=== PATIENT | male | born 1950 | race Caucasian/White ===

== ENCOUNTER → 2020-10-23 10:41 | Outpatient (BNVA) | payer MEDICARE, MEDICAID, SELFPAY | PROVIDERS: Family Provider Internal Medicine; PCP Internal Medicine; Visit Provider Internal Medicine | DX: N40.1 Benign prostatic hyperplasia with lower urinary tract symptoms (principal); R35.1 Nocturia; E78.00 Pure hypercholesterolemia, unspecified; E11.9 Type 2 diabetes mellitus without complications; R30.0 Dysuria; G89.4 Chronic pain syndrome; I10 Essential (primary) hypertension; G47.33 Obstructive sleep apnea (adult) (pediatric) | CPT/HCPCS: 80053; 80061; 83036; 84153; 84443; 85025 ==

== ENCOUNTER → 2021-07-02 16:16 | Outpatient (BNVA) | payer MEDICARE, MEDICAID, SELFPAY | PROVIDERS: Family Provider Internal Medicine; PCP Internal Medicine; Visit Provider Internal Medicine | DX: E11.9 Type 2 diabetes mellitus without complications (principal); G89.4 Chronic pain syndrome; E78.00 Pure hypercholesterolemia, unspecified; I10 Essential (primary) hypertension | CPT/HCPCS: 80061; 83036 ==

== ENCOUNTER → 2022-03-09 17:02 | Outpatient (BNVA) | payer MEDICARE, MEDICAID, SELFPAY | PROVIDERS: Family Provider Internal Medicine; PCP Internal Medicine; Visit Provider Internal Medicine | DX: D64.9 Anemia, unspecified (principal); R53.83 Other fatigue; E11.9 Type 2 diabetes mellitus without complications | CPT/HCPCS: 80053; 82607; 83036; 83550; 84443; 85025 ==

== ENCOUNTER 2022-04-22 09:36 | Outpatient (CLI) | payer MEDICARE, MEDICAID, SELFPAY ==
--- NOTE | 2022-04-22 09:45 | USCV_ITS ---
Trenton Frandy Age: 71 Gender: M : 1950 Exam Date: 04/22/2022 09:55 Ordering Phys: Jesús Avelar MD Technologist: Soni Loomis [place] [facility] [place]: systolic murmur BP: 0 / 80 HR: 66 Rhythm: Sinus Technical Quality: Good MEASUREMENTS (Male / Female) Normal Values 2D ECHO LV Diastolic Diameter PLAX 3.6 cm 4.2 - 5.9 / 3.9 - 5.3 cm LV Systolic Diameter PLAX 1.9 cm IVS Diastolic Thickness 1.2 cm 0.6 - 1.0 / 0.6 - 0.9 cm IVS Systolic Thickness 1.5 cm LVPW Diastolic Thickness 1.7 cm 0.6 - 1.0 / 0.6 - 0.9 cm LVPW Systolic Thickness 2.1 cm LVOT Diameter 2.0 cm LV Ejection Fraction 2D Teich 69.4 % LA Diameter 3.0 cm LA Width 3.6 cm LA Height 4.8 cm RA Width 3.5 cm RA Height 4.0 cm Aorta at Sinotubular Diameter 2.4 cm IVC Diameter 3.0 cm DOPPLER AV Peak Velocity 235.3 cm/s LVOT Peak Velocity 105.0 cm/s AV Area Cont Eq vti 1.4 cm squared AV Area Cont Eq pk 1.5 cm squared MV Peak Velocity 207.0 cm/s MV Area PHT 4.4 cm squared Mitral E to A Ratio 1.0 MV E' Velocity 56.0 cm/s Mitral E to MV E' Ratio 14.7 Mitral E to LV E' Lateral Ratio 11.7 Mitral E to LV E' Septal Ratio 19.8 TR Peak Velocity 113.0 cm/s TR Peak Gradient 5.1 mmHg Right Atrial Pressure 3.0 mmHg Pulmonary Artery Systolic Pressu 8.1 mmHg RV Acceleration Time 0.1 s RV Ejection Time 0.3 s RV AcT/ET 0.3 FINDINGS Left Ventricle Left ventricle is normal in size. LV systolic function is normal with EF of 55 to 60%. No regional wall abnormalities are seen. Right Ventricle Normal in size and function Right Atrium Normal in size Left Atrium Normal in size Mitral Valve Structurally normal mitral valve. Mild mitral regurgitation.Mean gradient across mitral valve is 5.4 mmHg. This is consistent with mild mitral stenosis. Aortic Valve Aortic valve is thickened. Mild aortic regurgitation. Mild aortic stenosis with aortic valve area of 1.41 cm2 and mean gradient across aortic valve of 11 mmHg. Tricuspid Valve Mild tricuspid regurgitation. Pulmonary artery systolic pressure is normal Pulmonic Valve Not well-visualized Pericardium Normal Aorta Normal in size IVC Appears to be normal CONCLUSIONS LV systolic function is normal with EF 55 to 60%. Mild mitral regurgitation. Mild mitral stenosis. Aortic valve is thickened. Mild aortic regurgitation. Mild aortic stenosis is seen. Mild tricuspid regurgitation No comparison studies are available Alo Delaney MD (Electronically Signed) Final Date: 03 May 2022 16:20 S
== END 2022-04-22 09:37 | disposition home or self-care (01) ==
LOC: RAD 09:37
PROVIDERS: PCP Family Medicine; Visit Provider Family Medicine
DX: R01.1 Cardiac murmur, unspecified (principal); I08.3 Combined rheumatic disorders of mitral, aortic and tricuspid valves
CPT/HCPCS: 93306

== ENCOUNTER 2023-03-22 08:34 | Outpatient (CLI) | payer MEDICARE, MEDICAID, SELFPAY ==
--- NOTE | 2023-03-22 | ECG_ITS ---
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 Interpretive Statements NAME OF STUDY: LEXISCAN SESTAMIBI STRESS TEST INDICATION: Chest Pain, PROCEDURE: At the baseline, the EKG revealed normal sinus rhythm with a normal ST Ts. The baseline heart was 75 bpm with a blood pressue of 157/87 mm of Hg Lexiscan was infused over a period of 20 seconds. A total of 0.4 milligrams of Lexiscan was infused. The stress phase was continued for a total of 5 minutes. Heart rate at the end of the stress phase was 82 bpm with a blood pressure 167/87 mm of Hg. The EKG at the peak infusion revealed no significant changes. Sestamibi was injected 20 seconds after the Lexiscan infusion. Heart rate at the end of the recovery phase was 81 bpm with a blood pressure of 161/87 mm of Hg. CONCLUSION: 1. No significant EKG changes with the LexiScan infusion 2. No LexiScan induced chest pain or cardiac arrhythmia 3. Normal blood pressure and heart rate response 4. Sestamibi/sestamibi perfusion scan pending; see separate report. Electronically Signed On 03-26-2023 12:20:57 WEATHER FORECASTER by Dixie Fair M.D. [email or web address]
[2023-03-22 09:02] VITALS: BMI 27.4
--- NOTE | 2023-03-22 09:04 | NMCV_ITS ---
NM cory perf SPECT r/s* [id number] Frandy Chowdhury Age: 72 Gender: M : 1950 Exam Date: 03/22/2023 10:08 Ordering Phys: Jesús Avelar MD Technologist: YARA Dodson Exam Location: [facility] Indications: CHEST PAIN STRESS TEST Please see separate stress test report in [facility] for full findings IMAGE PROTOCOL Rest/Stress 1 Lexiscan Day Radiopharmaceutical Dose (mCi) Administration Site Administered by Rest: Tc-99m 10.9 IV YARA Bledsoe Sestamibi Stress:Tc-99m 32.2 IV YARA Bledsoe Sestamibi Rest: 03/22/2023 60 Discovery 630 Stress: 03/22/2023 30 Discovery 630 0.4mg Lexiscan. Images obtained in supine and prone position. SPECT RESULTS Technical Quality: Excellent Raw Data Analysis: Image Corrections: No attenuation or motion correction applied Summed Stress Score: 0 Summed Rest Score: 2 Summed Difference Score: 0 PERFUSION FINDINGS Fairly uniform myocardial subject with no significant perfusion abnormalities FUNCTIONAL RESULTS (calculated via Gated SPECT) Stress Image LV EF (%): 90 Stress EDV (mL):82 TID: 1.19 Stress ESV (mL):8 FUNCTIONAL FINDINGS: Segmental wall motion analysis revealing no gross wall motion abnormalities IMPRESSIONS 1. Myocardial perfusion imaging revealing uniform myocardial tracer uptake with no significant perfusion normalities 2. Normal LV ejection fraction 90% 3. LV wall motion analysis revealing no gross wall motion abnormalities. 4. Normal LV volume. Low probability for coronary ischemia, based on the above findings Dr Dixie Fair MD FACC (Electronically Signed) Final Date: 22 March 2023 16:01 S
[2023-03-22] MEDS: regadenoson 0.4 Mg/5 ml Syringe IVP (10:43)
[2023-03-22 11:02] VITALS: BP 161/87; PULSE 82
== END 2023-03-22 08:35 | disposition home or self-care (01) ==
LOC: CDL 08:38
PROVIDERS: PCP Family Medicine; Visit Provider Family Medicine
DX: R07.9 Chest pain, unspecified (principal)
CPT/HCPCS: 36415; 78452; 93017; 96374; A9500; J2785

== ENCOUNTER 2023-08-29 05:19 | Inpatient (IN) | payer MEDICARE, MEDICAID, SELFPAY ==
[2023-08-29] VITALS (12 sets, daily range): BP systolic 96–159; BP diastolic 56–91; PULSE 69–106; RESP 13–27; TEMP 36.4–37.4; O2SAT 92–100; BMI 28.7
--- NOTE | 2023-08-29 05:27 | ECG_ITS ---
[facility] Test Date: 2023-08-29 Pat Name: Frandy Chowdhury Department: Room: 112 Gender: Male Gambreler: : 1950 Requested By: Vik Ramirez Order Number: [id number] Osito MD: Dixie Fair M.D. Measurements Intervals [place] Rate: 106 P: 4 [place]: 174 QRS: 67 QRSD: 100 T: -50 QT: 326 QTc: 433 Interpretive Statements SINUS TACHYCARDIA ST DEVIATION AND MODERATE T-WAVE ABNORMALITY, CONSIDER INFERIOR ISCHEMIA [-0.1+ mV T-WAVE IN II/aVF] Compared to ECG 08/29/2023 05:21:01 Atrial flutter no longer present T-wave abnormality still present Possible ischemia still present Electronically Signed On 08-29-2023 22:43:30 CDT by Dixie Fair M.D. [email or web address]
--- NOTE | 2023-08-29 05:27 | XRR_ITS ---
PROCEDURE INFORMATION: Exam: XR Chest Exam date and time: 08/29/2023 5:15 AM Age: 72 years old Clinical indication: Chest pressure; Prior surgery; Surgery date: 6+ months; Surgery type: Coronary stents; Patient HX: C/O chest pain; Additional info: Cp TECHNIQUE: Imaging protocol: Radiologic exam of the chest. Views: 1 view. COMPARISON: CR XR chest 1V [id number] 07/06/2018 11:26 PM FINDINGS: Lungs: Mild COPD. Diffuse interstitial edema or scarring. Lung base findings mildly progressed. No consolidation. Pleural spaces: Unremarkable. No pleural effusion. No pneumothorax. Heart/Mediastinum: The heart is large. Advanced diffuse vascular calcification noted. Bones/joints: Unremarkable. XR/XR chest 1V portable [id number] IMPRESSION: Mildly increased areas of bibasilar interstitial edema, scarring or pneumonitis. No other change from 07/06/2018.
[2023-08-29 05:38] LABS: Basophils # 0.1 10^3/uL (0.0-0.1); Basophils % 1.1 %; Eosinophils # 0.3 10^3/uL (0.0-0.8); Hematocrit 39.2 % (37-53); Lymphocytes # 2.7 10^3/uL (0.8-4.8); Mean Corpuscular HGB Conc 33.9 g/dL (30-55); Mean Corpuscular Hemoglobin 30.4 pg (27-33); Mean Corpuscular Volume 89.5 fl (82-101); Mean Platelet Volume 9.1 fL (7.4-10.4); Monocytes # 0.8 10^3/uL (0.2-0.9); Monocytes % 8.7 %; Neutrophils # 5.07 10^3/uL (1.8-7.7); Neutrophils % 55.7 %; Nucleated Red Blood Cells % 0 %; Platelet Count 226 10^3/cmm (157-399); Red Blood Count 4.38 10^6/uL (3.85-5.65); Red Cell Distribution Width 13.3 % (12.1-15.1)
[2023-08-29 05:40] LABS: INR 0.98 (0.8-1.2)
[2023-08-29 05:41] LABS: Partial Thromboplastin Time 29.7 SECONDS (23.9-36.7)
[2023-08-29] MEDS: heparin 5,000 unit/mL INJ 1 mL 4000 UNIT IVP (05:45)
[2023-08-29] MEDS: ondansetron 2 mg/ML SDV 2 mL 4 MG IVP (05:46)
[2023-08-29] MEDS: morphine 4 mg/mL SDV 1 mL IVP (05:47)
[2023-08-29] MEDS: clopidogrel 300 mg Tablet 600 MG PO (05:47)
[2023-08-29 05:51] LABS: Alanine Aminotransferase 50 U/L (0-41); Albumin Level 4.5 g/dL (3.5-5.2); Alkaline Phosphatase 204 U/L (40-130); Anion Gap 21.3 (5-19); Aspartate Amino Transferase 53 U/L (0-40); Blood Urea Nitrogen 21 mg/dL (8-23); Carbon Dioxide 18 mmol/L (22-29); Chloride 99 mmol/L (98-107); Creatinine Clr Calc Pharmacy 42.2718; Globulin 2.5 g/dL (1.3-4.6); Glucose 255 mg/dL (65-115); Osmolality Calculated 288 mOsm/kg (285-295); Potassium 5.3 mmol/L (3.5-5.1); Sodium 133 mmol/L (136-145); Total Bilirubin 0.6 mg/dL (0.15-1.2)
--- NOTE | 2023-08-29 05:51 | PC.NURSE ---
Pt's arm red in appearance above IV. Unknown if arm was red before medications. Pt. states it does it from time to time. will continue to observe IV site
[2023-08-29 05:52] LABS: Troponin(5th) Baseline 704 ng/L (0-15)
[2023-08-29] MEDS: diphenhydrAMINE 50 mg/mL SDV 1mL IVP (06:00)
--- NOTE | 2023-08-29 06:01 | P.CONIM_ITS ---
Providers/Reason For Consult 2 Consulting Physician/Specialty*: Cardiovascular medicine Reason for Consult*: Chest pain, abnormal EKG, Elevated troponin Requesting Physician: Emergency room Primary Care Provider: Jesús Avelar MD History of Present Illness History of Present Illness Frandy Chowdhury is a 72 year old male who is a very poor historian. He came to the emergency room a short while ago complaining of chest pain and shortness of breath. According to the emergency room physician he was struggling to breathe and so BiPAP mask has been placed. When I arrived the BiPAP was in place and it is exceedingly difficult to take a history. He is a poor historian. The best I can get out of him is that he started having chest pain around 2:00 and has become short of breath. Beyond that there is not much in the way of history. He states that he has not had an old heart attack. He does not think he has any stents in place. There is no cardiac visit or evidence of cardiac disease in his chart. He has a history of sleep apnea, hypertension, dyslipidemia, diabetes and chronic kidney disease. His creatinine was 1.5 in March 2022. He states that he is having some chest pain but it is difficult to get an accurate history. His EKGs have revealed subtle ST elevation in leads III and aVF. These are variable however. In 2022, March he had a normal sestamibi exam. In 2021 he had normal left ventricular function by echo with mild aortic stenosis and aortic insufficiency. In the emergency room he has received a heparin bolus, Plavix, aspirin, morphine, Zofran and fentanyl. His first troponin here is 704. His creatinine is 1.6 and his transaminases are slightly high. History is so nebulous but with the troponin fairly high and the EKG with subtle abnormalities I will take him to the catheterization laboratory. Review of Systems 2 Narrative: Review of systems is not available. Medications/Allergies Home Medications Medication Instructions Recorded Confirmed Last Taken Type albuterol sulfate 90 mcg/actuation See Rx Instructions .Route 01/20/21 03/18/22 Unknown Rx aerosol inhaler (Ventolin HFA) .COMPLEX #18 grams fluticasone propionate 50 See Rx Instructions .Route 01/20/21 03/18/22 Unknown Rx mcg/actuation nasal .COMPLEX #16 grams spray,suspension omeprazole 20 mg capsule,delayed 20 mg PO BID 90 days #180 caps 06/23/21 03/18/22 Unknown Rx release tamsulosin 0.4 mg capsule (Flomax) 0.4 mg PO DAILY #90 caps 10/07/21 03/18/22 Unknown Rx glimepiride 4 mg tablet (Amaryl) 4 mg PO BID #180 tabs 10/08/21 03/18/22 Unknown Rx metformin 750 mg tablet,extended See Rx Instructions .Route 11/06/21 03/18/22 Unknown Rx release 24 hr .COMPLEX #270 tabs hydrochlorothiazide 25 mg tablet See Rx Instructions .Route 01/06/22 03/18/22 Unknown Rx .COMPLEX #30 tabs sitagliptin phosphate 100 mg See Rx Instructions .Route 01/06/22 03/18/22 Unknown Rx tablet (Januvia) .COMPLEX #30 tabs lisinopril 20 mg tablet See Rx Instructions .Route 02/02/22 03/18/22 Unknown Rx .COMPLEX #30 tabs metoprolol tartrate 50 mg tablet 50 mg PO BID #60 tabs 02/02/22 03/18/22 Unknown Rx simvastatin 40 mg tablet See Rx Instructions .Route 02/09/22 03/18/22 Unknown Rx .COMPLEX #30 tabs Electric wheelchair #1 ea 03/04/22 03/18/22 Unknown Rx celecoxib 200 mg capsule See Rx Instructions .Route 03/09/22 03/18/22 Unknown Rx .COMPLEX #60 caps hydrocodone 10 mg-acetaminophen 1 tab PO BID PRN pain 1 month #60 03/18/22 03/18/22 Unknown Rx 325 mg tablet tabs Allergies Allergy/AdvReac Type Severity Reaction Status Date / Time No Known Allergies Allergy Verified 03/18/22 13:08 PFSH Acute 2 PFSH: Medical History (Updated 08/29/23 @ 06:07 by Vik Patel DO) Myocardial infarction, inferior wall ADRIAN (obstructive sleep apnea) Essential (primary) hypertension Pure hypercholesterolemia, unspecified Chronic pain Diabetes mellitus Surgical History History of hip replacement Family History Other Cancer Diabetes Hypertension Social History Smoking and tobacco/nicotine status: never used tobacco/nicotine Alcohol intake: never Substance/Drug Use: never Household members: none Housing: Apartment Marital status: Single Current occupational status: disabled Vitals/I&O/Wt Last Vital Signs Temp 97.6 F 08/29/23 05:19 Pulse 96 08/29/23 05:45 Resp 20 H 08/29/23 05:45 BP 126/85 08/29/23 05:45 Pulse Ox 99 08/29/23 05:45 FiO2 40 08/29/23 05:45 Weight last 48 hrs Weight 178 lb Physical Exam 2 Narrative: GENERAL: In general he looks mildly short of breath. HEENT: Exam within normal limits. NECK: Supple without jugular vein distention. The carotid upstroke is normal without bruits. BACK: Exam normal. LUNGS: Clear. HEART: Regular rate and rhythm. ABDOMEN: Benign without organomegaly or tenderness. EXTREMITIES: No edema. NEUROLOGIC: Exam normal. SKIN: Unremarkable. Data 08/29/23 05:24 08/29/23 05:24 A&P Assessment and plan (1) Pure hypercholesterolemia, unspecified: (2) Essential (primary) hypertension: (3) DM type 2 (diabetes mellitus, type 2): (4) Chronic pain: (5) ADRIAN (obstructive sleep apnea): (6) Myocardial infarction, inferior wall: Plan I suspect this has been going on longer than he admits. His transaminases are already mildly elevated. His troponin is 700 but we do not know if it is increasing or decreasing. The EKG suggests an inferior injury. We will take him to the catheterization laboratory and go from there. Consult Attestations 2 Medical Necessity Statement: Hospitalization for what is probably inferior injury and possible congestive heart failure. and High Time for a total of 60 minutes, includes reviewing past or interval history, examining/interviewing patient, placing orders, counseling patient/family/other support, updating patient/family/other support, discussing plan of care with staff, communicating with other healthcare providers, documenting encounter and coordinating care Diagnoses Pure hypercholesterolemia, unspecified E78.00 Essential (primary) hypertension I10 DM type 2 (diabetes mellitus, type 2) E11.9 Chronic pain G89.29 ADRIAN (obstructive sleep apnea) G47.33 Myocardial infarction, inferior wall I21.19
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
--- NOTE | 2023-08-29 06:04 | ED_ITS ---
HPI - Chest Pain 2 General: Chief Complaint: Chest Pain Stated Complaint: CP Time Seen by Provider: 08/29/23 05:23 History of Present Illness: 72-year-old male who tells me he has a h istory of coronary disease. He presents after waking this morning with significant chest pain. He rated a 10 out of 10 originally. He was short of breath as well. He says he has been coughing for a couple of days. No fever. He called 911. He received aspirin and fentanyl en route. Pain is improved to some degree, but he still having pain. He is diaphoretic, short of breath, and nauseated. Associated symptoms: Reports dyspnea and nausea; Deny abdominal pain, fever(s), palpitations or vomiting Review of Systems 2 Const: Denies: fever(s) ENMT: Denies: throat pain Card: Reports: chest pain; Denies: palpitations Resp: Reports: dyspnea and non-productive cough GI: Reports: nausea; Denies: abdominal pain or vomiting Psych: Reports: anxiety PFS ED 2 PFSH: Medical History Myocardial infarction, inferior wall ADRIAN (obstructive sleep apnea) Essential (primary) hypertension Pure hypercholesterolemia, unspecified Chronic pain Diabetes mellitus Surgical History History of hip replacement Family History Other Cancer Diabetes Hypertension Social History Smoking and tobacco/nicotine status: never used tobacco/nicotine Alcohol intake: never Substance/Drug Use: never Household members: none Housing: Apartment Marital status: Single Current occupational status: disabled Physical Exam 2 Const: GENERAL APPEARANCE: cooperative, in distress, ill appearing and frail appearing (mildly for age) HENMT: COMMON NORMALS: normocephalic, atraumatic and Normal external nose present HEAD & SCALP: normocephalic and atraumatic NOSE: Normal external nose present Eye: COMMON NORMALS: Equal, round and reactive pupils present and EOMs intact bilaterally PUPIL: Yes Equal, round and reactive pupils present Neck/C-Spine: GENERAL: Yes trachea midline Chest: CHEST: Yes Symmetrical chest wall rise Resp: EFFORT & INSPECTION: Yes tachypneic and Yes uses accessory muscles A USCULTATION: rales Cardio: COMMON NORMALS: regular rate and regular rhythm RATE: regular rate RHYTHM: regular rhythm GI: COMMON NORMALS: non-tender Extremity: GENERAL: Yes edema Neuro: TEZ COMA SCALE: document GCS findings [place] coma scale eye opening: Spontaneous Tez coma scale verbal response: Orientated Tez coma scale motor response: Obey commands Tez coma scale total score: 15 Course 2 Vital Signs: Vital signs: Vital Signs Temperature 97.6 F 08/29/23 05:19 Pulse Rate 75 08/29/23 12:00 Respiratory Rate 13 08/29/23 12:00 Blood Pressure 96/56 08/29/23 12:00 Pulse Oximetry 93 08/29/23 12:00 Oxygen Delivery Me thod Room Air 08/29/23 12:00 Fraction of Inspir ed Oxygen 40 08/29/23 08:02 MDM - Chest Pain Medical Decision Making Patient presents with significant chest pain, diaphoresis, shortness of breath. His EKG in the field, and initially here shows mild ST elevation in lead III, with less elevation in lead aVF. Rhythm is sinus. Rate is in the 80s. Consulted cardiology on the patient's arrival. He came in to see the patient and agrees to take the patient to the lab aid directly from the ER. He has had Fentanyl and aspirin in the field. He is given Plavix 600 milligrams, heparin, and morphine here. His pain is improved. Nitroglycerin was held, because of the inferior changes on EKG and problems related to potential hypotension with those types of infarcts/ injuries and nitrates. He is also taking erectile dysfunction medication. He is placed on bipap, as he appears to have edema on X-ray, and sounds wet on exam. His initial troponin was 700. Cardiology has requested hospitalist admission after going to the laboratory technical specialist. I have contacted them and they agreed to take the patient. Lab Data 08/29/23 05:24 08/29/23 05:24 Radiology Impressions Chest X-Ray 08/29/23 05:27 IMPRESSION: Mildly increased areas of bibasilar interstitial edema, scarring or pneumonitis. No other change from 07/06/2018. Laboratory Results WBC 9.10 10^3/uL (3.29-11.43) 08/29/23 05:24 RBC 4.38 10^6/uL (3.85-5.65) 08/29/23 05:24 Hgb 13.30 g/dL (11.27-16.99) 08/29/23 05:24 Hct 39.2 % (37-53) 08/29/23 05:24 MCV 89.5 fl (82-101) 08/29/23 05:24 MCH 30.4 pg (27-33) 08/29/23 05:24 MCHC 33.9 g/dL (30-55) 08/29/23 05:24 RDW 13.3 % (12.1-15.1) 08/29/23 05:24 Plt Count 226 10^3/cmm (157-399) 08/29/23 05:24 MPV 9.1 fL (7.4-10.4) 08/29/23 05:24 Neut % (Auto) 55.7 % 08/29/23 05:24 Lymph % (Auto) 30.0 % 08/29/23 05:24 [place] % (Auto) 8.7 % 08/29/23 05:24 Eos % (Auto) 3.0 % 08/29/23 05:24 Baso % (Auto) 1.1 % 08/29/23 05:24 Neut # (Auto) 5.07 10^3/uL (1.8-7.7) 08/29/23 05:24 Lymph # (Auto) 2.7 10^3/uL (0.8-4.8) 08/29/23 05:24 [place] # (Auto) 0.8 10^3/uL (0.2-0.9) 08/29/23 05:24 Eos # (Auto) 0.3 10^3/uL (0.0-0.8) 08/29/23 05:24 Baso # (Auto) 0.1 10^3/uL (0.0-0.1) 08/29/23 05:24 Nucleated RBC % (auto) 0 % 08/29/23 05:24 Nucleated RBCs # 0.0 /100WBC 08/29/23 05:24 PT 13.20 SECONDS (12.1-14.9) 08/29/23 05:24 INR 0.98 (0.8-1.2) 08/29/23 05:24 APTT 29.7 SECONDS (23.9-36.7) 08/29/23 05:24 Sodium 133 mmol/L (136-145) L 08/29/23 05:24 Potassium 5.3 mmol/L (3.5-5.1) H 08/29/23 05:24 Chloride 99 mmol/L (98-107) 08/29/23 05:24 Carbon Dioxide 18 mmol/L (22-29) L 08/29/23 05:24 Anion Gap 21.3 (5-19) H 08/29/23 05:24 BUN 21 mg/dL (8-23) 08/29/23 05:24 Creatinine 1.6 mg/dL (0.7-1.2) H 08/29/23 05:24 GFR Calculation Not Reportable 08/29/23 05:24 Glucose 255 mg/dL (65-115) H 08/29/23 05:24 Calculated Osmolality 288 mOsm/kg (285-295) 08/29/23 05:24 Calcium 9.0 mg/dL (8.5-10.5) 08/29/23 05:24 Total Bilirubin 0.6 mg/dL (0.15-1.2) 08/29/23 05:24 AST 53 U/L (0-40) H 08/29/23 05:24 ALT 50 U/L (0-41) H 08/29/23 05:24 Alkaline Phosphatase 204 U/L (40-130) H 08/29/23 05:24 Troponin T Baseline 704 ng/L (0-15) H* 08/29/23 05:24 NT-Pro-B Natriuret Pep 3766 pg/mL (0-125) H 08/29/23 05:24 Total Protein 7.0 g/dL (6.6-8.7) 08/29/23 05:24 Albumin 4.5 g/dL (3.5-5.2) 08/29/23 05:24 Globulin 2.5 g/dL (1.3-4.6) 08/29/23 05:24 All radiology interpretation(s) finalized by discharge Critical Care Time 2 Critical Care Time: Critical Care Time: Yes Total Critical Care Time: 35 Attestation: This case had a high probability of a clinically significant, sudden, or life threatening deterioration of this patient's condition which required my full and direct attention, intervention and personal management. Time is independent of any procedures performed. Discharge Plan Discharge Patient Disposition: Admitted As Inpatient Admit Provider: Allan Snyder Clinical Impression: Myocardial infarction, inferior wall Condition: Serious Coding Level of Care Code ED Hand Thermal Cutter for Lin Marquez
[2023-08-29 06:08] LABS: NT Pro B Type Natriuretic Pept 3766 pg/mL (0-125)
--- NOTE | 2023-08-29 07:18 | USCV_ITS ---
Frandy Chowdhury Age: 72 Gender: M : 1950 Exam Date: 08/29/2023 14:39 Ordering Phys: Allan Snyder MD ([email or web address]) Technologist: Enoc Calabrese Exam Location: [facility] [place] Indication: acute IWMI BP: 96 / 56 HR: 82 Rhythm: Sinus Technical Quality: Adequate MEASUREMENTS (Male / Female) Normal Values 2D ECHO LV Diastolic Diameter PLAX 2.5 cm 4.2 - 5.9 / 3.9 - 5.3 cm IVS Diastolic Thickness 1.1 cm 0.6 - 1.0 / 0.6 - 0.9 cm IVS Systolic Thickness 2.1 cm LVPW Diastolic Thickness 1.5 cm 0.6 - 1.0 / 0.6 - 0.9 cm LVPW Systolic Thickness 1.6 cm LVOT Diameter 2.0 cm LV Ejection Fraction 2D Teich 60.9 % LV Ejection Fraction MOD 2C 69.8 % LV Ejection Fraction 2C AL 71.6 % LA Diameter 3.7 cm RA Systolic Volume 4C AL 22.6 ml RA Systolic Volume 4C MOD 23.2 ml LA Sys Volume AL 58.1 cm cubed LA Sys Volume Index AL 29.6 cm cubed/m squared Aorta at Sinotubular Diameter 2.3 cm IVC Diameter 1.9 cm M-MODE LA Ao Ratio MM 1.2 AV Cusp Separation MM 1.4 cm DOPPLER AV Peak Velocity 284.0 cm/s LVOT Peak Velocity 106.0 cm/s AV Area Cont Eq vti 1.4 cm squared AV Area Cont Eq pk 1.2 cm squared MV Peak Velocity 133.0 cm/s MV Area PHT 5.5 cm squared Mitral E to A Ratio 0.9 TV Peak Velocity 247.3 cm/s TR Peak Velocity 381.0 cm/s TR Peak Gradient 58.1 mmHg TR Mean Velocity 300.0 cm/s TR Mean Gradient 38.3 mmHg TR Velocity Time Integral 117.0 cm PV Peak Velocity 139.7 cm/s RV Ejection Time 0.3 s FINDINGS Left Ventricle Left ventricle is normal in size. LV systolic function is normal with EF of 55 to 60%. No regional wall motion abnormalities are seen. Mild left ventricular hypertrophy. Grade 1 diastolic dysfunction. Right Ventricle Normal in size and function Right Atrium Normal in size Left Atrium Normal in size Mitral Valve Structurally normal mitral valve. Mild mitral regurgitation. Aortic Valve Aortic valve is thickened. No significant stenosis or regurgitation. Mild to moderate aortic stenosis with aortic valve area 1.3 cm squared and mean gradient of 18 mmHg. Mild aortic regurgitation Tricuspid Valve Trace tricuspid regurgitation. Insufficient TR jet to evaluate RVSP. Pulmonic Valve Trace pulmonic regurgitation. Pericardium Normal Aorta Normal in size IVC Appears to be normal CONCLUSIONS LV systolic function is normal with EF of 55 to 60%. Grade 1 diastolic dysfunction. Mild mitral regurgitation. Mild to moderate aortic stenosis. Trace tricuspid regurgitation Trace pulmonic regurgitation Compared to prior echocardiogram from 2021, no significant changes are seen. Alo Delaney MD (Electronically Signed) Final Date: 31 August 2023 07:25 S
--- NOTE | 2023-08-29 07:27 | ECG_ITS ---
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 Measurements Intervals [place] Rate: 69 P: 12 MD: 187 QRS: 57 QRSD: 113 T: -45 QT: 388 QTc: 417 Interpretive Statements SINUS RHYTHM MODERATE INTRAVENTRICULAR CONDUCTION DELAY [110+ ms QRS DURATION] ST DEVIATION AND MODERATE T-WAVE ABNORMALITY, CONSIDER LATERAL ISCHEMIA [-0.1+ mV T-WAVE IN I/aVL/V5/V6] ST DEVIATION AND MODERATE T-WAVE ABNORMALITY, CONSIDER INFERIOR ISCHEMIA [-0.1+ mV T-WAVE IN II/aVF] Compared to ECG 08/29/2023 05:21:01 Intraventricular conduction delay now present Atrial flutter no longer present T-wave abnormality still present Possible ischemia still present Electronically Signed On 08-29-2023 22:51:23 CDT by Dixie Fair M.D. [id number]
[2023-08-29] MEDS: sodium chloride 0.9% 1,000 ML 75 ML IV ×2 (07:40→18:48)
--- NOTE | 2023-08-29 08:28 | P.HP_ITS ---
Providers/Chief Complaint 2 Admitting Physician: Irving Cowan MD Primary Care Provider: Jesús Avelar MD Chief Complaint: CP History of Present Illness Frandy Chowdhury is a 72 year old male with past medical history of inferior wall DC, obstructive sleep apnea, hypertension, hyperlipidemia, chronic pain, diabetes mellitus, ite-ksyjjas-rerqtabyg, non-smoker presented to the hospital today with complaint of chest pain that started last night around 1 in the morning. He says he was also short of breath but pain was unbearable therefore he called 911. He also states he had nausea and had a vomit. He says it is okay to resuscitate him if needed. He is okay with intubation and CPR. On arrival to ER 111/74, saturating 99% on 40% FiO2, respiratory rate 20, pulse 90, temperature 97.6. EKG done in the field showed ST elevation in lead III and aVF. STEMI alert was called. Warehouse Freight Handler activated and patient taken to cath. He received 1 drug-eluting stent to LAD. Patient was loaded with Plavix and started on heparin drip on arrival. Chest x-ray showed mildly increased areas of bibasilar residual edema scarring or pneumonitis. Labs initial troponin 704, WBC 9.0, hemoglobin 13.3, INR 0.98, sodium 133, potassium 5.3, creatinine 1.6. Patient seen by hospitalist after returning from Warehouse Freight Handler after cardiac angiogram and PCI. He is resting comfortably in bed and is currently on BiPAP. States he takes his CPAP at nighttime. Medications/Allergies Home Medications Medication Instructions Recorded Confirmed Last Taken Type albuterol sulfate 90 mcg/actuation See Rx Instructions .Route 01/20/21 03/18/22 Unknown Rx aerosol inhaler (Ventolin HFA) .COMPLEX #18 grams fluticasone propionate 50 See Rx Instructions .Route 01/20/21 03/18/22 Unknown Rx mcg/actuation nasal .COMPLEX #16 grams spray,suspension omeprazole 20 mg capsule,delayed 20 mg PO BID 90 days #180 caps 06/23/21 03/18/22 Unknown Rx release tamsulosin 0.4 mg capsule (Flomax) 0.4 mg PO DAILY #90 caps 10/07/21 03/18/22 Unknown Rx glimepiride 4 mg tablet (Amaryl) 4 mg PO BID #180 tabs 10/08/21 03/18/22 Unknown Rx metformin 750 mg tablet,extended See Rx Instructions .Route 11/06/21 03/18/22 Unknown Rx release 24 hr .COMPLEX #270 tabs hydrochlorothiazide 25 mg tablet See Rx Instructions .Route 01/06/22 03/18/22 Unknown Rx .COMPLEX #30 tabs sitagliptin phosphate 100 mg See Rx Instructions .Route 01/06/22 03/18/22 Unknown Rx tablet (Januvia) .COMPLEX #30 tabs lisinopril 20 mg tablet See Rx Instructions .Route 02/02/22 03/18/22 Unknown Rx .COMPLEX #30 tabs metoprolol tartrate 50 mg tablet 50 mg PO BID #60 tabs 02/02/22 03/18/22 Unknown Rx simvastatin 40 mg tablet See Rx Instructions .Route 02/09/22 03/18/22 Unknown Rx .COMPLEX #30 tabs Electric wheelchair #1 ea 03/04/22 03/18/22 Unknown Rx celecoxib 200 mg capsule See Rx Instructions .Route 03/09/22 03/18/22 Unknown Rx .COMPLEX #60 caps hydrocodone 10 mg-acetaminophen 1 tab PO BID PRN pain 1 month #60 03/18/22 03/18/22 Unknown Rx 325 mg tablet tabs Allergies Allergy/AdvReac Type Severity Reaction Status Date / Time No Known Allergies Allergy Verified 03/18/22 13:08 PFSH Acute 2 PFSH: Medical History (Updated 08/29/23 @ 06:07 by Vik Patel DO) Myocardial infarction, inferior wall ADRIAN (obstructive sleep apnea) Essential (primary) hypertension Pure hypercholesterolemia, unspecified Chronic pain Diabetes mellitus Surgical History History of hip replacement Family History Other Cancer Diabetes Hypertension Social History Smoking and tobacco/nicotine status: never used tobacco/nicotine Alcohol intake: never Substance/Drug Use: never Household members: none Housing: Apartment Marital status: Single Current occupational status: disabled Vitals/I&O/Wt Last Vital Signs Temp 97.6 F 08/29/23 05:19 Pulse 90 08/29/23 06:02 Resp 20 H 08/29/23 06:02 BP 111/74 08/29/23 06:02 Pulse Ox 99 08/29/23 06:02 FiO2 40 08/29/23 05:45 Weight last 48 hrs Weight 80.739 kg Physical Exam 2 Narrative: General: Alert oriented x3, patient seen resting comfortably in bed on BiPAP. HEENT: Normocephalic, atraumatic, EOMI, Cardio: Regular rate rhythm, normal S1-S2 Respiratory: Good bilateral air entry, no wheezes no rhonchi appreciated GI: Abdomen soft, nontender, nondistended, bowel sounds + Behavior: Appropriate and cooperative Extremities: no edema, no cyanosis Data 08/29/23 05:24 08/29/23 05:24 A&P Assessment and plan (1) Essential (primary) hypertension: (2) Myocardial infarction, inferior wall: (3) ST elevation myocardial infarction (STEMI): (4) Pure hypercholesterolemia, unspecified: (5) DM type 2 (diabetes mellitus, type 2): (6) ADRIAN (obstructive sleep apnea): (7) Chronic pain: Plan #Inferior wall STEMI #Hypertension #Hyperlipidemia #Diabetes mellitus, kcc-zljoaqc-wapoxtese #Shortness of breath, chest pain, nausea, diaphoresis secondary to above #GIBSON, baseline creatinine unknown. ? Continue aspirin, Plavix, ACS protocol, atorvastatin 80 daily ? Patient's status post PCI with TAI to LAD. ? Continue normal saline 75 cc/h ? Creatinine 1.6. Baseline unknown. Patient at risk of contrast-induced nephropathy ? Continue on IV fluids. ? Echo pending ? Check TSH, hemoglobin A1c, lipid profile ? Sliding scale insulin low-dose intensity Full code DVT prophylaxis: Heparin Patient wants us to contact his friend Mariann in case he cannot make his own medical decisions. Attestations 2 Medical Necessity Statement*: Greater than 2 minutes stay for management of STEMI Diagnoses Essential (primary) hypertension I10 Myocardial infarction, inferior wall I21.19 ST elevation myocardial infarction (STEMI) I21.3 Pure hypercholesterolemia, unspecified E78.00 DM type 2 (diabetes mellitus, type 2) E11.9 ADRIAN (obstructive sleep apnea) G47.33 Chronic pain G89.29
[2023-08-29 10:06] LABS: Partial Thromboplastin Time 28.9 SECONDS (23.9-36.7)
[2023-08-29 10:13] LABS: Troponin 5 2HR 996.8 ng/L (0-15); Troponin 5 2HR Delta 292.8 ABS# (0-10)
[2023-08-29] MEDS: aspirin 81 mg EC Tablet PO (10:14)
--- NOTE | 2023-08-29 11:27 | ECG_ITS ---
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 Measurements Intervals [place] Rate: 107 P: 0 [place]: 0 QRS: 59 QRSD: 97 T: -40 QT: 315 QTc: 421 Interpretive Statements Possible sinus TACHYCARDIA ST DEVIATION AND MODERATE T-WAVE ABNORMALITY, CONSIDER INFERIOR ISCHEMIA [-0.1+ mV T-WAVE IN II/aVF] No previous ECG available for comparison Baseline artifact Electronically Signed On 08-29-2023 22:51:16 CDT by Dixie Fair M.D. [id number]
[2023-08-29 12:22] LABS: Estmated Average Glucose 151; Hemoglobin A1C 6.9 % (4.0-6.0)
[2023-08-29 12:25] LABS: Glucose Point of Care 286 mg/dL (70-110)
[2023-08-29 12:28] LABS: Troponin 5 6HR 1390 ng/L (0-15); Troponin 5 6HR Delta 686 ng/L (0-12)
[2023-08-29 12:38] LABS: Chol HDL Ratio 2.78 mg/dL (1.0-5.00); Cholesterol 114 mg/dL (0-200); HDL Cholesterol 41 mg/dL (60-100); LDL Cholesterol Calculated 26 mg/dL (50-129); Thyroid Stimulating Hormone 2.54 uIU/mL (0.27-4.20); Triglycerides 233 mg/dL (0-150); VLDL Cholestrol Calculation 47 mg/dL (0-30)
[2023-08-29] MEDS: insulin lispro 100 unit/1 mL SUBCUT ×3 (13:51→21:13)
[2023-08-29 17:09] LABS: Glucose Point of Care 148 mg/dL (70-110)
[2023-08-29] MEDS: atorvastatin 40 mg Tablet 80 MG PO (17:56)
[2023-08-29 20:27] LABS: Glucose Point of Care 240 mg/dL (70-110)
[2023-08-29] MEDS: heparin 5,000 unit/mL INJ 1 mL 5000 UNIT SUBCUT (23:55)
[2023-08-30] VITALS (78 sets, daily range): BP systolic 105–217; BP diastolic 60–125; PULSE 74–157; RESP 13–31; TEMP 36.6–37.4; O2SAT 89–98
[2023-08-30 05:18] LABS: Basophils % 0.6 %; Eosinophils # 0.1 10^3/uL (0.0-0.8); Eosinophils % 2.2 %; Hematocrit 34.5 % (37-53); Lymphocytes % 19.3 %; Mean Corpuscular HGB Conc 32.8 g/dL (30-55); Mean Corpuscular Hemoglobin 30.3 pg (27-33); Mean Corpuscular Volume 92.5 fl (82-101); Mean Platelet Volume 9.2 fL (7.4-10.4); Monocytes # 0.5 10^3/uL (0.2-0.9); Monocytes % 9.3 %; Neutrophils # 3.47 10^3/uL (1.8-7.7); Neutrophils % 68.2 %; Nucleated Red Blood Cells % 0 %; Platelet Count 157 10^3/cmm (157-399); Red Blood Count 3.73 10^6/uL (3.85-5.65); Red Cell Distribution Width 13.3 % (12.1-15.1); White Blood Count 5.08 10^3/uL (3.29-11.43)
[2023-08-30 05:33] LABS: Anion Gap 15.6 (5-19); Blood Urea Nitrogen 22 mg/dL (8-23); Calcium 8.5 mg/dL (8.5-10.5); Carbon Dioxide 23 mmol/L (22-29); Chloride 108 mmol/L (98-107); Creatinine Clr Calc Pharmacy 39.7853; Glucose 165 mg/dL (65-115); Magnesium 1.7 mg/dL (1.7-2.3); Osmolality Calculated 301 mOsm/kg (285-295); Potassium 4.6 mmol/L (3.5-5.1); Sodium 142 mmol/L (136-145)
[2023-08-30 06:46] LABS: Glucose Point of Care 171 mg/dL (70-110)
--- NOTE | 2023-08-30 07:36 | P.PN_ITS ---
Subjective 2 Subjective: Patient is feeling better. No chest pain. Had PCI of LAD and RCA . Plan for staged revascularization of left circumflex artery in 2 weeks. Vitals/I&O/Wt Last Vital Signs Temp 97.8 F 08/30/23 04:00 Pulse 89 08/30/23 05:57 Resp 18 08/30/23 04:00 BP 152/83 08/30/23 04:00 Pulse Ox 93 08/30/23 04:00 O2 Del Method Room Air 08/30/23 04:00 O2 Flow Rate 94 08/29/23 15:04 FiO2 21 08/30/23 00:43 08/29/23 08/30/23 08/30/23 22:59 06:59 14:59 Intake Total 835 / 835 Output Total 600 / 600 775 / 1375 Balance 235 / 235 -775 / -540 Weight last 48 hrs Weight 169 lb Weight 178 lb Weight 178 lb Physical Exam 2 Narrative: GENERAL: Patient is alert, awake and oriented x3. [] NECK: No jugular vein distension. [] HEENT: No cyanosis. No icterus. No pallor. [] HEART: Regular S1 and S2. No murmur, rub or gallop. [] LUNGS: Diminished air entry CENTRAL NERVOUS SYSTEM: Grossly nonfocal. [] EXTREMITIES: Lower extremities with 1+ edema bilaterally. Data 08/31/23 03:27 08/31/23 03:27 A&P Assessment and plan (1) Pure hypercholesterolemia, unspecified: (2) Essential (primary) hypertension: (3) DM type 2 (diabetes mellitus, type 2): (4) Chronic pain: (5) ADRIAN (obstructive sleep apnea): (6) Myocardial infarction, inferior wall: Plan Patient had revascularization of RCA and LAD yesterday. Plan for staged PCI of left circumflex artery in 2 weeks. He is hemodynamically stable. Can uptitrate beta-adelia. Continue dual antiplatelet therapy. Echocardiogram is pending. Thank you for involving us with care of this patient. Will continue to follow. Please call with questions. Attestations 2 Medical Necessity Statement*: Care expected to cross 2 midnights. Coding Level of Care Code Acute Code for [facility] Fwd Diagnoses Pure hypercholesterolemia, unspecified E78.00 Essential (primary) hypertension I10 DM type 2 (diabetes mellitus, type 2) E11.9 Chronic pain G89.29 ADRIAN (obstructive sleep apnea) G47.33 Myocardial infarction, inferior wall I21.19
[2023-08-30] MEDS: sodium chloride 0.9% 1,000 ML 75 ML IV (07:40)
[2023-08-30] MEDS: clopidogrel 75 mg Tablet PO (09:01)
[2023-08-30] MEDS: pantoprazole DR 40 mg Tablet PO (09:01)
[2023-08-30] MEDS: aspirin 81 mg EC Tablet PO (09:01)
[2023-08-30] MEDS: insulin lispro 100 unit/1 mL SUBCUT ×4 (09:02→22:05)
--- NOTE | 2023-08-30 12:20 | P.PN_ITS ---
Subjective 2 Subjective: seen this morning no acute events overnight Vitals/I&O/Wt Last Vital Signs Temp 98 F 08/30/23 08:30 Pulse 113 H 08/30/23 08:40 Resp 18 08/30/23 08:40 BP 180/93 08/30/23 08:30 Pulse Ox 93 08/30/23 08:40 O2 Del Method Room Air 08/30/23 08:40 O2 Flow Rate 94 08/29/23 15:04 FiO2 21 08/30/23 00:43 08/29/23 08/30/23 08/30/23 22:59 06:59 14:59 Intake Total 835 / 835 965 / 965 Output Total 600 / 600 775 / 1375 200 / 200 Balance 235 / 235 -775 / -540 765 / 765 Weight last 48 hrs Weight 76.657 kg Weight 80.739 kg Weight 80.739 kg Physical Exam 2 Narrative: General: Alert oriented x3, patient seen resting comfortably in bed on BiPAP. HEENT: Normocephalic, atraumatic, EOMI, Cardio: Regular rate rhythm, normal S1-S2 Respiratory: Good bilateral air entry, no wheezes no rhonchi appreciated GI: Abdomen soft, nontender, nondistended, bowel sounds + Behavior: Appropriate and cooperative Extremities: no edema, no cyanosis Data 08/30/23 05:10 08/30/23 05:10 A&P Assessment and plan (1) Essential (primary) hypertension: (2) Myocardial infarction, inferior wall: (3) ST elevation myocardial infarction (STEMI): (4) Pure hypercholesterolemia, unspecified: (5) DM type 2 (diabetes mellitus, type 2): (6) ADRIAN (obstructive sleep apnea): (7) Chronic pain: Plan #Inferior wall STEMI #Hypertension #Hyperlipidemia #Diabetes mellitus, cvv-xasrxgd-dixrbiggn #Shortness of breath, chest pain, nausea, diaphoresis secondary to above #GIBSON, baseline creatinine unknown. ? Continue aspirin, Plavix, ACS protocol, atorvastatin 80 daily ? Patient's status post PCI with TAI to LAD. ? Continue normal saline 75 cc/h ? Creatinine 1.7. Baseline unknown. Patient at risk of contrast-induced nephropathy ? Continue on IV fluids. ? Echo pending ? Check TSH 2.54, hemoglobin A1c 6.9, lipid profile TG 233, Chol 114, LDL 26 ? Sliding scale insulin low-dose intensity Plan for dc in Am Full code DVT prophylaxis: Heparin Patient wants us to contact his friend Mariann in case he cannot make his own medical decisions. Attestations 2 Medical Necessity Statement*: Greater than 2 minutes stay for management of STEMI Diagnoses Essential (primary) hypertension I10 Myocardial infarction, inferior wall I21.19 ST elevation myocardial infarction (STEMI) I21.3 Pure hypercholesterolemia, unspecified E78.00 DM type 2 (diabetes mellitus, type 2) E11.9 ADRIAN (obstructive sleep apnea) G47.33 Chronic pain G89.29
[2023-08-30 12:30] LABS: Glucose Point of Care 280 mg/dL (70-110)
[2023-08-30] MEDS: heparin 5,000 unit/mL INJ 1 mL 5000 UNIT SUBCUT (14:08)
[2023-08-30 17:27] LABS: Glucose Point of Care 215 mg/dL (70-110)
[2023-08-30] MEDS: atorvastatin 40 mg Tablet 80 MG PO (18:24)
[2023-08-30] MEDS: hyDRALAzine 20 mg/mL INJ 1 mL 10 MG IVP (20:14)
[2023-08-30] MEDS: ALPRAZolam 0.5 mg Tablet 0.25 MG PO (20:23)
[2023-08-30 21:05] LABS: Glucose Point of Care 225 mg/dL (70-110)
[2023-08-30] MEDS: nitroglycerin 0.4 mg sublingual Tablet 0.400000000000000022 MG SUBLINGUAL (21:12)
[2023-08-30] MEDS: metoprolol tartrate 25 mg Tablet PO (22:02)
[2023-08-31] VITALS (40 sets, daily range): BP systolic 115–169; BP diastolic 64–104; PULSE 77–121; RESP 14–34; TEMP 36.6–37.1; O2SAT 93–96
[2023-08-31] MEDS: sodium chloride 0.9% 1,000 ML 75 ML IV (00:53)
[2023-08-31] MEDS: heparin 5,000 unit/mL INJ 1 mL 5000 UNIT SUBCUT (00:54)
[2023-08-31 04:08] LABS: Basophils # 0.1 10^3/uL (0.0-0.1); Eosinophils # 0.1 10^3/uL (0.0-0.8); Eosinophils % 2.3 %; Hematocrit 36.7 % (37-53); Lymphocytes # 1.1 10^3/uL (0.8-4.8); Lymphocytes % 17.2 %; Mean Corpuscular HGB Conc 32.7 g/dL (30-55); Mean Corpuscular Volume 91.8 fl (82-101); Mean Platelet Volume 9.1 fL (7.4-10.4); Monocytes # 0.6 10^3/uL (0.2-0.9); Monocytes % 9.7 %; Neutrophils # 4.24 10^3/uL (1.8-7.7); Neutrophils % 69.5 %; Nucleated Red Blood Cells % 0 %; Platelet Count 164 10^3/cmm (157-399); Red Cell Distribution Width 13.2 % (12.1-15.1)
[2023-08-31 04:25] LABS: Blood Urea Nitrogen 16 mg/dL (8-23); Calcium 9.1 mg/dL (8.5-10.5); Carbon Dioxide 24 mmol/L (22-29); Chloride 104 mmol/L (98-107); Glucose 150 mg/dL (65-115); Magnesium 1.5 mg/dL (1.7-2.3); Osmolality Calculated 290 mOsm/kg (285-295); Sodium 138 mmol/L (136-145)
[2023-08-31 06:27] LABS: Glucose Point of Care 164 mg/dL (70-110)
--- NOTE | 2023-08-31 07:16 | P.PN_ITS ---
Subjective 2 Subjective: Patient is doing well. No chest pain. Vitals/I&O/Wt Last Vital Signs Temp 98.7 F 08/31/23 04:00 Pulse 86 08/31/23 06:00 Resp 16 08/31/23 04:00 BP 154/97 08/31/23 04:00 Pulse Ox 93 08/31/23 04:00 O2 Del Method Room Air 08/30/23 21:22 O2 Flow Rate 94 08/29/23 15:04 FiO2 21 08/30/23 00:43 08/30/23 08/31/23 08/31/23 22:59 06:59 14:59 Intake Total 1000 / 1965 240 / 2205 Output Total 1800 / 2700 1320 / 4020 Balance -800 / -735 -1080 / -1815 Weight last 48 hrs Weight 169 lb Weight 178 lb Physical Exam 2 Narrative: GENERAL: Patient is alert, awake and oriented x3. [] NECK: No jugular vein distension. [] HEENT: No cyanosis. No icterus. No pallor. [] HEART: Regular S1 and S2. No murmur, rub or gallop. [] LUNGS: Diminished air entry CENTRAL NERVOUS SYSTEM: Grossly nonfocal. [] EXTREMITIES: Lower extremities with 1+ edema bilaterally. Data 08/31/23 03:27 08/31/23 03:27 A&P Assessment and plan (1) Pure hypercholesterolemia, unspecified: (2) Essential (primary) hypertension: (3) DM type 2 (diabetes mellitus, type 2): (4) Chronic pain: (5) ADRIAN (obstructive sleep apnea): (6) Myocardial infarction, inferior wall: Plan Patient had revascularization of RCA and LAD. Plan for staged PCI of left circumflex artery in 2 weeks. He is hemodynamically stable. Can uptitrate beta-adelia. Continue dual antiplatelet therapy. Echocardiogram showed normal LV systolic function Thank you for involving us with care of this patient. Patient is stable to be discharged from cardiac standpoint. Please call with questions. Attestations 2 Medical Necessity Statement*: Care expected to cross 2 midnights. Coding Level of Care Code Acute Code for g Fwd Diagnoses Pure hypercholesterolemia, unspecified E78.00 Essential (primary) hypertension I10 DM type 2 (diabetes mellitus, type 2) E11.9 Chronic pain G89.29 ADRIAN (obstructive sleep apnea) G47.33 Myocardial infarction, inferior wall I21.19
[2023-08-31] MEDS: clopidogrel 75 mg Tablet PO (08:31)
[2023-08-31] MEDS: pantoprazole DR 40 mg Tablet PO (08:31)
[2023-08-31] MEDS: aspirin 81 mg EC Tablet PO (08:31)
[2023-08-31] MEDS: lisinopril 20 mg Tablet PO (08:31)
[2023-08-31] MEDS: metoprolol tartrate 50 mg Tablet PO (08:31)
[2023-08-31] MEDS: insulin lispro 100 unit/1 mL SUBCUT (08:37)
--- NOTE | 2023-08-31 08:50 | PM.DCS ---
Discharge Providers Date of Admission: 08/29/23 07:41 Date of Discharge: August 31, 2023 Attending Provider at Admission: Allan Snyder MD Attending Provider at Discharge: Deidre Collier MD Primary Care Provider: Jesús Avelar MD Diagnoses at Discharge Discharge Diagnosis (1) Pure hypercholesterolemia, unspecified: Status: Acute (2) Essential (primary) hypertension: Status: Acute (3) DM type 2 (diabetes mellitus, type 2): Status: Acute (4) Chronic pain: Status: Acute (5) ADRIAN (obstructive sleep apnea): Status: Acute (6) Myocardial infarction, inferior wall: Status: Resolved Reason for Visit Reason for Visit: CP Hospital Course Hospital Course Patient admitted for ST elevation DC underwent immediate coronary angiogram from the ER. Underwent intervention with 1 stent to LAD. Will need a staged intervention in another 2 weeks to marginal branch. Patient monitored in the hospital post angiogram and did okay. Started on dual antiplatelet therapy and discharged home in stable condition with follow-up with cardiology outpatient. Patient agreeable with the above plan. He states he lives alone but has a caregiver and nurses that come to check up on him. Physical Exam Narrative: General: No acute distress. Sitting up in recliner appearing comfortable at this time. Denies chest pain HEENT: Normocephalic, atraumatic, EOMI, Cardio: Regular rate rhythm, normal S1-S2 Respiratory: Good bilateral air entry, no wheezes no rhonchi appreciated GI: Abdomen soft, nontender, nondistended, bowel sounds + Behavior: Appropriate and cooperative Extremities: no edema, no cyanosis Discharge Data Studies Completed and Pending Completed Studies During Hospitalization Category Date Time Status BROADCAST PROGRAM DIRECTOR request for service Stat Exams 08/29/23 06:03 Completed XR chest 1V portable [id number] Stat Exams 08/29/23 05:27 Completed CV. echo complete* [id number] Stat Ultrasound 08/29/23 07:18 Completed Radiology Impressions Chest X-Ray 08/29/23 05:27 IMPRESSION: Mildly increased areas of bibasilar interstitial edema, scarring or pneumonitis. No other change from 07/06/2018. Laboratory Results WBC 6.10 10^3/uL (3.29-11.43) 08/31/23 03:27 RBC 4.00 10^6/uL (3.85-5.65) 08/31/23 03:27 Hgb 12.00 g/dL (11.27-16.99) 08/31/23 03: Hct 36.7 % (37-53) L 08/31/23 03: MCV 91.8 fl (82-101) 08/31/23 03: MCH 30.0 pg (27-33) 08/31/23 03: MCHC 32.7 g/dL (30-55) 08/31/23 03: RDW 13.2 % (12.1-15.1) 08/31/23 03:27 Plt Count 164 10^3/cmm (157-399) 08/31/23 03: MPV 9.1 fL (7.4-10.4) 08/31/23 03: Neut % (Auto) 69.5 % 08/31/23 03: Lymph % (Auto) 17.2 % 08/31/23 03:27 [place] % (Auto) 9.7 % 08/31/23 03:27 Eos % (Auto) 2.3 % 08/31/23 03:27 Baso % (Auto) 1.0 % 08/31/23 03:27 Neut # (Auto) 4.24 10^3/uL (1.8-7.7) 08/31/23 03:27 Lymph # (Auto) 1.1 10^3/uL (0.8-4.8) 08/31/23 03:27 [place] # (Auto) 0.6 10^3/uL (0.2-0.9) 08/31/23 03:27 Eos # (Auto) 0.1 10^3/uL (0.0-0.8) 08/31/23 03:27 Baso # (Auto) 0.1 10^3/uL (0.0-0.1) 08/31/23 03:27 Nucleated RBC % (auto) 0 % 08/31/23 03:27 Nucleated RBCs # 0.0 /100WBC 08/31/23 03:27 PT 13.20 SECONDS (12.1-14.9) 08/29/23 05:24 INR 0.98 (0.8-1.2) 08/29/23 05:24 APTT 28.9 SECONDS (23.9-36.7) 08/29/23 09:41 Sodium 138 mmol/L (136-145) 08/31/23 03:27 Potassium 4.0 mmol/L (3.5-5.1) 08/31/23 03:27 Chloride 104 mmol/L (98-107) 08/31/23 03:27 Carbon Dioxide 24 mmol/L (22-29) 08/31/23 03:27 Anion Gap 14.0 (5-19) 08/31/23 03:27 BUN 16 mg/dL (8-23) 08/31/23 03:27 Creatinine 1.4 mg/dL (0.7-1.2) H 08/31/23 03:27 GFR Calculation Not Reportable 08/31/23 03:27 Glucose 150 mg/dL (65-115) H 08/31/23 03:27 POC Glucose 164 mg/dL (70-110) H 08/31/23 06:15 Estimat Average Glucose 151 08/29/23 11:50 Hemoglobin A1c 6.9 % (4.0-6.0) H 08/29/23 11:50 Calculated Osmolality 290 mOsm/kg (285-295) 08/31/23 03:27 Calcium 9.1 mg/dL (8.5-10.5) 08/31/23 03:27 Magnesium 1.5 mg/dL (1.7-2.3) L 08/31/23 03:27 Total Bilirubin 0.6 mg/dL (0.15-1.2) 08/29/23 05:24 AST 53 U/L (0-40) H 08/29/23 05:24 ALT 50 U/L (0-41) H 08/29/23 05:24 Alkaline Phosphatase 204 U/L (40-130) H 08/29/23 05:24 Troponin T Baseline 704 ng/L (0-15) H* 08/29/23 05:24 Troponin T 120 Minute 996.8 ng/L (0-15) H 08/29/23 09:41 Delta Troponin T 292.8 ABS# (0-10) H* 08/29/23 09:41 Troponin T Hi Sens 6Hr 1390 ng/L (0-15) H 08/29/23 11:50 Troponin T Hi Sens 6Hr Delta 686 ng/L (0-12) H* 08/29/23 11:50 NT-Pro-B Natriuret Pep 3766 pg/mL (0-125) H 08/29/23 05:24 Total Protein 7.0 g/dL (6.6-8.7) 08/29/23 05:24 Albumin 4.5 g/dL (3.5-5.2) 08/29/23 05:24 Globulin 2.5 g/dL (1.3-4.6) 08/29/23 05:24 Triglycerides 233 mg/dL (0-150) H 08/29/23 11:50 Cholesterol 114 mg/dL (0-200) 08/29/23 11:50 LDL Cholesterol, Calc 26 mg/dL (50-129) L 08/29/23 11:50 Total VLDL Cholesterol 47 mg/dL (0-30) H 08/29/23 11:50 HDL Cholesterol 41 mg/dL (60-100) L 08/29/23 11:50 Cholesterol/HDL Ratio 2.78 mg/dL (1.0-5.00) 08/29/23 11:50 TSH 2.54 uIU/mL (0.27-4.20) 08/29/23 11:50 Vitals Last Vital Signs Temp 98.4 F 08/31/23 08:00 Pulse 104 H 08/31/23 08:16 Resp 20 H 08/31/23 08:16 BP 169/104 08/31/23 08:00 Pulse Ox 94 08/31/23 08:16 O2 Del Method Room Air 08/31/23 08:16 O2 Flow Rate 94 08/29/23 15:04 FiO2 21 08/30/23 00:43 Discharge Plan Discharge Patient Disposition: Home Condition: Stable Prescriptions: New atorvastatin 40 mg Tablet 80 mg PO QPM Qty: 60 0RF clopidogrel 75 mg Tablet 75 mg PO DAILY Qty: 30 0RF aspirin 81 mg Tablet,Delayed Release (Dr/Ec) 81 mg PO DAILY Qty: 30 0RF Continued hydrocodone-acetaminophen 10-325 mg tablet 1 tab PO BID PRN (Reason: pain) 30 Days Qty: 60 0RF albuterol sulfate [Ventolin HFA] 90 mcg/actuation HFA aerosol inhaler See Rx Instructions .ROUTE .COMPLEX Qty: 18 3RF Dose Instruction: INHALE 2 PUFFS BY MOUTH FOUR TIMES A DAY NEEDED FOR FOR SHORTNESS OF BREATH OR WHEEZING Rx Instructions: INHALE 2 PUFFS BY MOUTH FOUR TIMES A DAY NEEDED FOR FOR SHORTNESS OF BREATH OR WHEEZING fluticasone propionate 50 mcg/actuation spray,suspension See Rx Instructions .ROUTE .COMPLEX Qty: 16 3RF Dose Instruction: PLACE 1 SPRAY IN EACH NOSTRIL DAILY Rx Instructions: PLACE 1 SPRAY IN EACH NOSTRIL DAILY omeprazole 20 mg capsule,delayed release(DR/EC) 20 mg PO BID 90 Days Qty: 180 3RF tamsulosin [Flomax] 0.4 mg capsule 0.4 mg PO DAILY Qty: 90 3RF metformin 750 mg tablet extended release 24 hr See Rx Instructions .ROUTE .COMPLEX Qty: 270 3RF Dose Instruction: TAKE THREE TABLETS BY MOUTH EVERY DAY AFTER LARGEST MEAL Rx Instructions: TAKE THREE TABLETS BY MOUTH EVERY DAY AFTER LARGEST MEAL hydrochlorothiazide 25 mg tablet See Rx Instructions .ROUTE .COMPLEX Qty: 30 5RF Dose Instruction: TAKE 1 TABLET BY MOUTH DAILY Rx Instructions: TAKE 1 TABLET BY MOUTH DAILY Januvia 100 mg tablet See Rx Instructions .ROUTE .COMPLEX Qty: 30 5RF Dose Instruction: TAKE 1 TABLET BY MOUTH DAILY Rx Instructions: TAKE 1 TABLET BY MOUTH DAILY metoprolol tartrate 50 mg tablet 50 mg PO BID Qty: 60 5RF lisinopril 20 mg tablet See Rx Instructions .ROUTE .COMPLEX Qty: 30 5RF Dose Instruction: TAKE ONE TABLET BY MOUTH EVERY DAY Rx Instructions: TAKE ONE TABLET BY MOUTH EVERY DAY (DME) Electric wheelchair See Rx Instructions .Route .MEDSUPPLY Qty: 1 0RF Rx Instructions: As directed celecoxib 200 mg capsule See Rx Instructions .ROUTE .COMPLEX Qty: 60 3RF Dose Instruction: TAKE 1 CAPSULE BY MOUTH TWO TIMES A DAY Rx Instructions: TAKE 1 CAPSULE BY MOUTH TWO TIMES A DAY glimepiride 4 mg tablet 4 mg PO BID Discontinued simvastatin 40 mg tablet See Rx Instructions .ROUTE .COMPLEX Qty: 30 5RF Dose Instruction: TAKE 1 TABLET BY MOUTH DAILY Rx Instructions: TAKE 1 TABLET BY MOUTH DAILY Discharge Orders: Discharge Order (Routine); Ordered 08/31/23 Ordered By: Deidre Collier Referrals: Jesús Avelar MD [Primary Care Provider] - 09/06/23 2:00 pm Alo Delaney M.D [Physician] - 3 weeks (During your appointment with Le Gasca you will be scheduled for appointment with Dr. Delaney. Thank you! ) Le Gasca, EULOGIO [Nurse Practitioner] - 09/13/23 3:00 pm Discharge Diet: Cardiac and Diabetic Discharge Activity: Limit activity as instructed Patient Instructions: Coronary Angioplasty (DC), Hypertension (DC), Opioid Safety, Post Angiogram Home Care Instructions Discharge Attestations Time Spent in Discharge Care*: greater than 30 min Quality Metrics Clinical Quality Measures [ No reported AMI, CVA or VTE this stay] Coding Level of Care Code Acute Code for Chg Fwd Diagnoses Pure hypercholesterolemia, unspecified E78.00 Essential (primary) hypertension I10 DM type 2 (diabetes mellitus, type 2) E11.9 Chronic pain G89.29 ADRIAN (obstructive sleep apnea) G47.33 Myocardial infarction, inferior wall I21.19
[2023-08-31 11:39] LABS: Glucose Point of Care 206 mg/dL (70-110)
--- NOTE | 2023-08-31 13:27 | PC.NURSE ---
Discharge Note Patient discharged to [home] via [w/c to medicaid transport van] accompanied by [the RN]. Discharge instructions reviewed with patient and/or jewelry sales representative. Mobile pharmacy medications and/or prescriptions provided. Belongings/home medications returned.
--- NOTE | 2023-09-01 12:24 | PC.NURSE ---
Quality Review During quality review of case we were unable to determine the exact arrival of Dr. Snyder at bedside. Video review was performed and reviewed by this nurse and Yamilex Harkins, mlt and it was visualized that Dr. Snyder arrived at 05:47.
== END 2023-08-31 12:00 | disposition home or self-care (01) | DRG 322 ==
LOC: ER 06:07 → CSU 07:40
PROVIDERS: Admitting Provider Internal Medicine Cardiovascular Disease; Emergency Provider Emergency Medicine; PCP Family Medicine; Visit Provider Internal Medicine
PROC: 027135Z Dilation of Coronary Artery, Two Arteries with Two Drug-eluting Intraluminal Devices, Percutaneous Approach (ICD-10-PCS; principal; 2023-08-29 05:45)
PROC: 027135Z Dilation of Coronary Artery, Two Arteries with Two Drug-eluting Intraluminal Devices, Percutaneous Approach (ICD-10-PCS; 2023-08-29 05:45)
DX: I21.19 ST elevation (STEMI) myocardial infarction involving other coronary artery of inferior wall (principal); N17.9 Acute kidney failure, unspecified; G47.33 Obstructive sleep apnea (adult) (pediatric); E11.22 Type 2 diabetes mellitus with diabetic chronic kidney disease; I12.9 Hypertensive chronic kidney disease with stage 1 through stage 4 chronic kidney disease, or unspecified chronic kidney disease; N18.9 Chronic kidney disease, unspecified; E78.5 Hyperlipidemia, unspecified; I35.0 Nonrheumatic aortic (valve) stenosis; E78.00 Pure hypercholesterolemia, unspecified; G89.29 Other chronic pain; I25.10 Atherosclerotic heart disease of native coronary artery without angina pectoris; Z79.84 Long term (current) use of oral hypoglycemic drugs
CPT/HCPCS: 36415; 36416; 71045; 80048; 80053; 80061; 82962; 83036; 83735; 83880; 84443; 84484; 85025; 85610; 85730; 93005; 93306; 93454; 94660; 94664; 96372; 96374; 96375; 96376; 99152; 99153; 99285; C1725; C1769; C1874; C1887; C1894; C9600; J0360; J1200; J1644; J1815; J1940; J2250; J2270; J2405; J3010; J3490; J7030; Q9967

== ENCOUNTER → 2023-09-13 14:49 | Outpatient (BNVA) | payer MEDICARE, MEDICAID, SELFPAY | PROVIDERS: PCP Family Medicine; Visit Provider Nurse Practitioner Family | DX: I25.10 Atherosclerotic heart disease of native coronary artery without angina pectoris (principal); I10 Essential (primary) hypertension; I25.2 Old myocardial infarction | CPT/HCPCS: 36415; 80048; 99214 ==

== ENCOUNTER 2023-09-29 08:52 | Observation (INO) | payer MEDICARE, MEDICAID, SELFPAY ==
[2023-09-29] VITALS (23 sets, daily range): BP systolic 96–181; BP diastolic 62–104; PULSE 57–84; RESP 8–20; TEMP 36.6–37; O2SAT 95–98; BMI 26.9
--- NOTE | 2023-09-29 06:00 | XACV_ITS ---
Ht: 168 cm Wt: 76 kg BSA: 1.89 m2 Gender: Male : 1950 Any Known Allergies: No known allergies Exam Priority: Routine Indication(s): - Chest pain Procedure(s): Procedure Description: PCI procedure Procedure Description: Drug Eluting Coronary Stent Procedure Description: Miscellaneous Procedure Description: ACT Procedure Description: Coronary Angiography Diagnostic Cath Status: Elective Diagnostic Findings * INDICATION: Staged PCI of OM 2. * Patent prior stent in the LAD. Severe 80% large sized OM 2 stenosis. * RCA is not injected as it is a staged PCI. S/p successful revascularization of OM 2 with 1 stent.. * Second Obtuse Marginal Branch Segment: significant 80% stenosis, MELINA: 3 flow. * Coronary angiography shows right dominance. PCI Status: Elective PCI Indication: Staged PCI Interventional Findings * Procedure detail: We engaged left main artery with XB 3.5 guide catheter. IV heparin was administered to maintain anticoagulation. 0.014 run-through guidewire was used to cross stenosis. We predilated stenosis with 2.5 x 20 mm semicompliant balloon. This was followed with placement of 2.25 x 26 mm resolute [place] drug-eluting stent. At this time final angiogram was performed that showed excellent stent expansion, no residual stenosis and MELINA-3 flow. Guidewire and guide catheter were removed. Patient left the Colorist Dyer in a stable condition.. * Second Obtuse Marginal Branch Segment: 80% stenosis treated with a AB TREK 2.50X20 RX BALLOON, and JOSHUA Hernandez CHELSEA 2.25X26 TAI. 0% residual stenosis, MELINA: 3 flow. Conclusions 1. Patent prior stent in the LAD. Severe 80% large sized OM 2 stenosis. 2. RCA is not injected as it is a staged PCI. S/p successful revascularization of OM 2 with 1 stent.. 3. Second Obtuse Marginal Branch Segment was treated with a Balloon, and Drug Eluting Stent. Recommendations * Continue dual antiplatelet therapy with aspirin and Plavix for at least 1 year. * High intensity statin therapy. * Outpatient cardiology follow-up in 4 weeks. Interventional RX Recommendation: PCI w/o planned CABG Diagnostic RX Recommendation: PCI w/o planned CABG Anticoagulation: Heparin Pressures Phase:Rest AO : / ( 0 ) @ 8:19:00 AM 102 / 57 ( 81 ) @ 8:27:00 AM / ( -12 ) @ 8:47:00 AM Clinical Evaluation EBL: 5mL-10mL Procedural Details Procedure Consent Obtained. Current Diagnosis : Chest Pain. Pre-Procedure Time Out. Identified patient by full name and date of as verbalized by the patient/guarantor. Does the consent match the physician's order: Yes. Accurate & Complete Informed Consent: Yes. Inpatient/Outpatient History & Physical on Chart: Yes. If H&P is completed, is and addenduem needed: No; If yes, is the addendum complete: N/A. Visualize and Verify Site with Patient/Guarantor: N/A. Relevant Radiology Images available: N/A. The risks, benefits, and alternatives of sedation and/or procedure were discussed by physician. The patient agrees to continue. Admit Source: Out Patient. Procedure started. [facility] Clinical Fraility Score: 4: Vulnerable. Colorist Dyer Indications: Staged intervention of the circumflex. Chest Pain Symptom Assessment: Typical Angina Symptoms. Cardiovascular Instability: No; stable. Correct patient, site and procedure confirmed by cath team. Current diagnosis: Chest Pain. PERRLA. Strong, equal hand cut and cover line worker bilaterally. Lungs clear x 5 lobes. IV Site on Arrival: 20 gauge in the left forearm. IV Fluids: 0.9% NaCl at KVO. 0 mL infused prior to manager labor delivery. Pre Procedural Pulses: bilateral dorsalis pedis was 2+. Pre Procedural Pulses: bilateral posterior tibial was 2+. Pre Procedural Pulses: bilateral radial was 2+. Oxygen started at 3liters/min via nasal canula. bilateral groins was prepped with chloroprep then draped in the usual sterile fashion. Baseline sample Acquired. HR: 68 BPM. Physician notified. Patient's family unavailable. Physician arrived. Physician scrubbed in. Immediate Pre-Procedure Time Out. Correct Patient: Yes; Correct Procedure: Yes; Correct Site: Yes; Correct Patient Position: Yes; Correct Supplies: Yes; Dried Flammable Prep: Yes; Blood Products Available: N/A;. Lidocaine 1% infiltrated to the right groin. Arterial access obtained with micropuncture set. 6 vincentian XB 3.5 guide catheter was inserted over the wire. Guide seated in the LCS. Runthrough guidewire was advanced through the guide catheter to lesion in the OM. Guidewire advanced across lesion. Inflation number : 1 A AB TREK 2.50X20 RX BALLOON was prepped and advanced across the 2nd Ob Magalys , then inflated to 8 TISHA for 0:14 seconds. Inflation number: 2 The AB TREK 2.50X20 RX BALLOON was reinflated across the 2nd Ob Magalys, to 10 TISHA for 0:25 seconds. Balloon out over the wire. Results checked. Inflation Number : 3 A JOSHUA R CHELSEA 2.25X26 TAI -Lot Number# [id number] was prepped and advanced across the 2nd Ob Magalys. The stent was deployed at 14 TISHA for 0:20 seconds. EXP 01-11-24. Stent balloon out over wire. Results checked. Runthrough wire out. Results checked. Guide catheter out over the wire. Physician review of films. ACT drawn. Results 256 seconds. Therapeutic limits - pre-heparin administration 90-150 seconds and monitoring heparin during a vascular procedure >250 seconds. A Right femoral angiogram was performed to determine safe placement of closure device. A Angio-Seal VIP ([place]) was successful obtaining hemostatsis at the Right Femoral artery insertion site. Angioseal placed without complications. No signs or symptoms of hematoma noted. Sterile dressing applied per usual sterile fashion. LOT [id number] EXP 05/09/2024. Post Procedure: Pulses reassessed and unchanged. PERRLA. Strong, equal hand cut and cover line worker bilaterally. No VTE prophylaxis required. Medication's Wasted: Nitro = 49.8 mg. Medication waste: Versed- 1 mg, Fentanyl- 75 mcg. Total IV fluids: 50 mL. Fluoro: 7:08. Contrast type used: Visipaque 320 mgI/mL, 100 mL bottle. Post-op diagnosis: Severe OM2 Stenosis; Status Post TAI PCI. Complications: None. Medication's Wasted: Heparin = 3000 units. Estimated blood loss: 5mL-10mL. Responsiveness - Normal response to verbal stimuli; alert and oriented, PERRLA. Airway - Unaffected, no intervention required; spontaneous ventilation. Circulation: W/N/L, pulses unchanged. Nausea/Vomiting: No. Procedure completed. Patient transferred by bed to 1st floor. Vital chart was stopped. Access Site Site: Right Femoral artery Sheath Size: 6 Fr Hemostasis Method: Angio-Seal VIP ([place]) Hemostasis Success: Successful Procedure Medications Start: 7:21 AM Stop: 7:21 AM Medication: Versed 1 mg and Fentanyl 25 mcg Amount: 1 Route: I.V. Start: 7:25 AM Stop: 7:25 AM Medication: Heparin Amount: 7000 units Route: I.V. Start: 7:42 AM Stop: 7:42 AM Medication: Nitrogylcerin Amount: 200 mcg Route: I.C. Start: 7:46 AM Stop: 7:46 AM Medication: Plavix Amount: 300 mg Route: P.O. Start: 7:50 AM Stop: 7:50 AM Medication: Heparin Amount: 1000 units Route: I.V. I, the attending physician, have reviewed and verified all procedure medications. Yes, all medications given per verbal order History/Risk Factors Hypertension: Yes Dyslipidemia: Yes Peripheral Arterial Disease (PAD): No Myocardial Infarction (NE): Yes Obesity: No Renal Disease: No Tobacco Use: Never Prior Interventions PCI: Yes CABG: No Valve Surgery: No Date of PCI: 08/29/2023 Report Signatures Finalized by Alo Delaney MD on 10/03/2023 10:31 PM
[2023-09-29] MEDS: diphenhydrAMINE 50 mg Capsule PO (06:15)
[2023-09-29 06:28] LABS: Basophils % 0.8 %; Eosinophils # 0.2 10^3/uL (0.0-0.8); Eosinophils % 3.5 %; Hematocrit 39.4 % (37-53); Lymphocytes # 1.3 10^3/uL (0.8-4.8); Lymphocytes % 27.5 %; Mean Corpuscular HGB Conc 32.2 g/dL (30-55); Mean Corpuscular Hemoglobin 29.4 pg (27-33); Mean Corpuscular Volume 91.2 fl (82-101); Mean Platelet Volume 9.2 fL (7.4-10.4); Monocytes # 0.4 10^3/uL (0.2-0.9); Monocytes % 8.3 %; Neutrophils # 2.88 10^3/uL (1.8-7.7); Neutrophils % 59.7 %; Nucleated Red Blood Cells % 0 %; Platelet Count 135 10^3/cmm (157-399); Red Blood Count 4.32 10^6/uL (3.85-5.65); Red Cell Distribution Width 12.8 % (12.1-15.1); White Blood Count 4.83 10^3/uL (3.29-11.43)
--- NOTE | 2023-09-29 06:43 | PC.NURSE ---
Home medications When asking patient about home medications last taken, patient was able to report he took his aspirin 81mg this am. When asked about other medications last taken he reported he took what was in his pill organizer. Unable to tell nurse specific meds, reports his home health nurse puts the medications in there and he takes them. No pill bottles or list brought in with patient. Educated patient on importance of med list.
[2023-09-29 06:48] LABS: Anion Gap 15.2 (5-19); Blood Urea Nitrogen 24 mg/dL (8-23); Calcium 9.3 mg/dL (8.5-10.5); Carbon Dioxide 26 mmol/L (22-29); Chloride 100 mmol/L (98-107); Creatinine Clr Calc Pharmacy 41.0766; Glucose 154 mg/dL (65-115); Osmolality Calculated 291 mOsm/kg (285-295); Potassium 4.2 mmol/L (3.5-5.1); Sodium 137 mmol/L (136-145)
--- NOTE | 2023-09-29 06:58 | W.PM.OPSUD ---
Surgery/Procedure H&P Update DATE OF PROCEDURE: September 29, 2023 DATE H&P PERFORMED: 09/13/23 H&P UPDATE INFORMATION: I have reviewed H&P completed within last 30 days, I have examined patient prior to procedure and No changes to prior documentation PREOP DIAGNOSIS: Staged PCI of left circumflex artery/ OM 2. PRIMARY INDICATION FOR PROCEDURE: Staged PCI of left circumflex artery/ OM 2. PLANNED PROCEDURE: Operation Date: 09/29/23 07:00 Proposed Procedures Staged PCI of left cirucmflex artery-Alo Delaney M.D PATIENT REASSESSED PRIOR TO SEDATION, WITH NO CHANGE NOTED: Yes PHYSICAL EXAM: alert, oriented x 3, clear to auscultation bilaterally and regular rate & rhythm AIRWAY EVAL/ANESTHESIA PLAN: normal airway, ASA III, Local Anesthesia, Risks, benefits & alternatives of sedation and/or procedure discussed and Patient agrees to continue as planned
[2023-09-29] MEDS: sodium chloride 0.9% 1,000 ML 100 ML IV ×2 (12:35→20:39)
[2023-09-29 16:41] LABS: Glucose Point of Care 143 mg/dL (70-110)
[2023-09-29] MEDS: atorvastatin 40 mg Tablet 80 MG PO (18:48)
[2023-09-29] MEDS: metoprolol tartrate 50 mg Tablet PO (18:48)
[2023-09-29] MEDS: pantoprazole DR 40 mg Tablet PO (18:48)
[2023-09-29 20:25] LABS: Glucose Point of Care 290 mg/dL (70-110)
[2023-09-29] MEDS: insulin lispro 100 unit/1 mL SUBCUT (20:37)
[2023-09-30 04:29] LABS: Basophils % 0.7 %; Eosinophils # 0.1 10^3/uL (0.0-0.8); Eosinophils % 2.9 %; Hematocrit 38.6 % (37-53); Lymphocytes # 0.8 10^3/uL (0.8-4.8); Lymphocytes % 17.2 %; Mean Corpuscular HGB Conc 32.6 g/dL (30-55); Mean Corpuscular Hemoglobin 29.7 pg (27-33); Mean Platelet Volume 9.3 fL (7.4-10.4); Monocytes # 0.4 10^3/uL (0.2-0.9); Monocytes % 9.5 %; Neutrophils # 3.07 10^3/uL (1.8-7.7); Neutrophils % 69.5 %; Nucleated Red Blood Cells % 0 %; Platelet Count 129 10^3/cmm (157-399); Red Blood Count 4.24 10^6/uL (3.85-5.65); Red Cell Distribution Width 12.7 % (12.1-15.1); White Blood Count 4.42 10^3/uL (3.29-11.43)
[2023-09-30 04:46] LABS: Anion Gap 15.5 (5-19); Blood Urea Nitrogen 23 mg/dL (8-23); Calcium 9.3 mg/dL (8.5-10.5); Carbon Dioxide 25 mmol/L (22-29); Chloride 105 mmol/L (98-107); Glucose 136 mg/dL (65-115); Osmolality Calculated 298 mOsm/kg (285-295); Potassium 4.5 mmol/L (3.5-5.1); Sodium 141 mmol/L (136-145)
[2023-09-30 04:50] LABS: Creatinine Clr Calc Pharmacy 38.6603
[2023-09-30 06:00] VITALS: PULSE 67
[2023-09-30 06:28] LABS: Glucose Point of Care 146 mg/dL (70-110)
[2023-09-30 07:28] VITALS: PULSE 71; RESP 16; O2SAT 97
[2023-09-30 07:46] VITALS: BP 162/87; PULSE 67; RESP 20; TEMP 36.7; O2SAT 98
--- NOTE | 2023-09-30 08:35 | P.DS_ITS ---
Discharge Providers Date of Admission: 09/29/23 08:52 Date of Discharge: September 30, 2023 Attending Provider at Admission: Alo Delaney M.D Attending Provider at Discharge: Alo Delaney M.D Primary Care Provider: Jesús Avelar MD Reason for Visit Reason for Visit: I25.10 Brief History: 72-year-old man with past medical histor y of hypertension who had recent acute MA and underwent successful revascularization of RCA and LAD is here for staged PCI of OM 2. Hospital Course Hospital Course Patient underwent successful revascularization of OM 2 from femoral artery access. 1 stent was placed. Patient was observed overnight and stayed stable. Was discharged home on dual antiplatelet therapy in stable condition. Physical Exam Narrative: GENERAL: Patient is alert, awake and oriented x3. [] NECK: No jugular vein distension. [] HEENT: No cyanosis. No icterus. No pallor. [] HEART: Regular S1 and S2. No murmur, rub or gallop. [] LUNGS: Diminished air entry CENTRAL NERVOUS SYSTEM: Grossly nonfocal. [] EXTREMITIES: Lower extremities with 1+ edema bilaterally. Discharge Data Studies Completed and Pending Pending at discharge Category Date Time Status FACULTY PHYSICIAN request for service Routine Exams 09/29/23 06:00 Taken Laboratory Results WBC 4.42 10^3/uL (3.29-11.43) 09/30/23 04:08 RBC 4.24 10^6/uL (3.85-5.65) 09/30/23 04:08 Hgb 12.60 g/dL (11.27-16.99) 09/30/23 04:08 Hct 38.6 % (37-53) 09/30/23 04:08 MCV 91.0 fl (82-101) 09/30/23 04:08 MCH 29.7 pg (27-33) 09/30/23 04:08 MCHC 32.6 g/dL (30-55) 09/30/23 04:08 RDW 12.7 % (12.1-15.1) 09/30/23 04:08 Plt Count 129 10^3/cmm (157-399) L 09/30/23 04:08 MPV 9.3 fL (7.4-10.4) 09/30/23 04:08 Neut % (Auto) 69.5 % 09/30/23 04:08 Lymph % (Auto) 17.2 % 09/30/23 04:08 [place] % (Auto) 9.5 % 09/30/23 04:08 Eos % (Auto) 2.9 % 09/30/23 04:08 Baso % (Auto) 0.7 % 09/30/23 04:08 Neut # (Auto) 3.07 10^3/uL (1.8-7.7) 09/30/23 04:08 Lymph # (Auto) 0.8 10^3/uL (0.8-4.8) 09/30/23 04:08 [place] # (Auto) 0.4 10^3/uL (0.2-0.9) 09/30/23 04:08 Eos # (Auto) 0.1 10^3/uL (0.0-0.8) 09/30/23 04:08 Baso # (Auto) 0.0 10^3/uL (0.0-0.1) 09/30/23 04:08 Nucleated RBC % (auto) 0 % 09/30/23 04:08 Nucleated RBCs # 0.0 /100WBC 09/30/23 04:08 Sodium 141 mmol/L (136-145) 09/30/23 04:08 Potassium 4.5 mmol/L (3.5-5.1) 09/30/23 04:08 Chloride 105 mmol/L (98-107) 09/30/23 04:08 Carbon Dioxide 25 mmol/L (22-29) 09/30/23 04:08 Anion Gap 15.5 (5-19) 09/30/23 04:08 BUN 23 mg/dL (8-23) 09/30/23 04:08 Creatinine 1.7 mg/dL (0.7-1.2) H 09/30/23 04:08 GFR Calculation Not Reportable 09/30/23 04:08 Glucose 136 mg/dL (65-115) H 09/30/23 04:08 POC Glucose 146 mg/dL (70-110) H 09/30/23 06:14 Calculated Osmolality 298 mOsm/kg (285-295) H 09/30/23 04:08 Calcium 9.3 mg/dL (8.5-10.5) 09/30/23 04:08 Vitals Last Vital Signs Temp 98.0 F 09/30/23 07:46 Pulse 67 09/30/23 07:46 Resp 20 H 09/30/23 07:46 BP 162/87 09/30/23 07:46 Pulse Ox 98 09/30/23 07:46 O2 Del Method Room Air 09/30/23 07:46 Discharge Plan Discharge Patient Disposition: Home Condition: Stable Prescriptions: Continued hydrocodone-acetaminophen 10-325 mg tablet 1 tab PO BID PRN (Reason: pain) 30 Days Qty: 60 0RF albuterol sulfate [Ventolin HFA] 90 mcg/actuation HFA aerosol inhaler See Rx Instructions .ROUTE .COMPLEX Qty: 18 3RF Dose Instruction: INHALE 2 PUFFS BY MOUTH FOUR TIMES A DAY NEEDED FOR FOR SHORTNESS OF BREATH OR WHEEZING Rx Instructions: INHALE 2 PUFFS BY MOUTH FOUR TIMES A DAY NEEDED FOR FOR SHORTNESS OF BREATH OR WHEEZING fluticasone propionate 50 mcg/actuation spray,suspension See Rx Instructions .ROUTE .COMPLEX Qty: 16 3RF Dose Instruction: PLACE 1 SPRAY IN EACH NOSTRIL DAILY Rx Instructions: PLACE 1 SPRAY IN EACH NOSTRIL DAILY omeprazole 20 mg capsule,delayed release(DR/EC) 20 mg PO BID 90 Days Qty: 180 3RF tamsulosin [Flomax] 0.4 mg capsule 0.4 mg PO DAILY Qty: 90 3RF hydrochlorothiazide 25 mg tablet See Rx Instructions .ROUTE .COMPLEX Qty: 30 5RF Dose Instruction: TAKE 1 TABLET BY MOUTH DAILY Rx Instructions: TAKE 1 TABLET BY MOUTH DAILY Januvia 100 mg tablet See Rx Instructions .ROUTE .COMPLEX Qty: 30 5RF Dose Instruction: TAKE 1 TABLET BY MOUTH DAILY Rx Instructions: TAKE 1 TABLET BY MOUTH DAILY metoprolol tartrate 50 mg tablet 50 mg PO BID Qty: 60 5RF lisinopril 20 mg tablet See Rx Instructions .ROUTE .COMPLEX Qty: 30 5RF Dose Instruction: TAKE ONE TABLET BY MOUTH EVERY DAY Rx Instructions: TAKE ONE TABLET BY MOUTH EVERY DAY (DME) Electric wheelchair See Rx Instructions .Route .MEDSUPPLY Qty: 1 0RF Rx Instructions: As directed celecoxib 200 mg capsule See Rx Instructions .ROUTE .COMPLEX Qty: 60 3RF Dose Instruction: TAKE 1 CAPSULE BY MOUTH TWO TIMES A DAY Rx Instructions: TAKE 1 CAPSULE BY MOUTH TWO TIMES A DAY glimepiride 4 mg tablet 4 mg PO BID atorvastatin 40 mg Tablet 80 mg PO QPM Qty: 60 0RF clopidogrel 75 mg Tablet 75 mg PO DAILY Qty: 30 0RF aspirin 81 mg Tablet,Delayed Release (Dr/Ec) 81 mg PO DAILY Qty: 30 0RF Held metformin 750 mg tablet extended release 24 hr See Rx Instructions .ROUTE .COMPLEX Qty: 270 3RF Hold Instructions: Resume on 10/02/23. Dose Instruction: TAKE THREE TABLETS BY MOUTH EVERY DAY AFTER LARGEST MEAL Rx Instructions: TAKE THREE TABLETS BY MOUTH EVERY DAY AFTER LARGEST MEAL Discharge Orders: Discharge Order (Routine); Ordered 09/30/23 Ordered By: Alo Delaney Referrals: Jesús Avelar MD [Primary Care Provider] - 10/11/23 1:30 pm Le Gasca FNP [Nurse Practitioner] - 10/27/23 3:00 pm Discharge Diet: Diabetic Discharge Activity: Increase activity as tolerated Patient Instructions: Coronary Angioplasty (DC), Opioid Safety, Post Angiogram Home Care Instructions Discharge Attestations Time Spent in Discharge Care*: less than 30 min Quality Metrics Clinical Quality Measures [ No reported AMI, CVA or VTE this stay] Coding Level of Care Code Acute Code for Chg Fwjones
[2023-09-30 09:13] VITALS: BP 162/87; PULSE 67; RESP 20; TEMP 36.7; O2SAT 98
[2023-09-30] MEDS: pantoprazole DR 40 mg Tablet PO (09:20)
[2023-09-30] MEDS: aspirin 81 mg EC Tablet PO (09:20)
[2023-09-30] MEDS: clopidogrel 75 mg Tablet PO (09:20)
[2023-09-30] MEDS: hydroCHLOROthiazide 25 mg Tablet PO (09:20)
[2023-09-30] MEDS: lisinopril 20 mg Tablet PO (09:20)
[2023-09-30] MEDS: metoprolol tartrate 50 mg Tablet PO (09:20)
--- NOTE | 2023-09-30 12:22 | PC.NURSE ---
Discharge Note Patient discharged to [home] via [ambulation to [employer] drivers car] accompanied by [his RN]. Discharge instructions reviewed with patient and/or food service representative. Mobile pharmacy medications and/or prescriptions provided. Belongings/home medications returned.
== END 2023-09-30 11:20 | disposition home or self-care (01) ==
LOC: CSU 08:52
PROVIDERS: Admitting Provider Internal Medicine; PCP Family Medicine; Visit Provider Internal Medicine
DX: I25.10 Atherosclerotic heart disease of native coronary artery without angina pectoris (principal); I10 Essential (primary) hypertension; I25.2 Old myocardial infarction; Z79.82 Long term (current) use of aspirin; G47.33 Obstructive sleep apnea (adult) (pediatric); E11.9 Type 2 diabetes mellitus without complications; E78.00 Pure hypercholesterolemia, unspecified
CPT/HCPCS: 36415; 36416; 80048; 82962; 85025; 85347; 96365; 96372; 96374; 96375; 99152; 99153; C1725; C1760; C1769; C1874; C1887; C1894; C9600; G0269; G0378; J1644; J1815; J2250; J3010; J3490; J7030; Q0163; Q9967

== ENCOUNTER → 2023-10-27 14:37 | Outpatient (BNVA) | payer MEDICARE, MEDICAID, SELFPAY | PROVIDERS: PCP Family Medicine; Visit Provider Nurse Practitioner Family | DX: I25.10 Atherosclerotic heart disease of native coronary artery without angina pectoris (principal); Z87.891 Personal history of nicotine dependence; I10 Essential (primary) hypertension | CPT/HCPCS: 36415; 80048; 99214 ==

== ENCOUNTER → 2023-12-06 11:59 | Outpatient (BNVA) | payer MEDICARE, MEDICAID, SELFPAY | PROVIDERS: PCP Family Medicine; Visit Provider Internal Medicine Cardiovascular Disease | DX: E78.00 Pure hypercholesterolemia, unspecified (principal); I10 Essential (primary) hypertension; I25.10 Atherosclerotic heart disease of native coronary artery without angina pectoris; E11.9 Type 2 diabetes mellitus without complications; G47.33 Obstructive sleep apnea (adult) (pediatric); Z95.5 Presence of coronary angioplasty implant and graft; Z79.84 Long term (current) use of oral hypoglycemic drugs; Z72.0 Tobacco use | CPT/HCPCS: 99213 ==

== ENCOUNTER → 2024-02-01 09:57 | Outpatient (BNVA) | payer MEDICARE, MEDICAID, SELFPAY | PROVIDERS: PCP Family Medicine; Visit Provider Nurse Practitioner Family | DX: I25.10 Atherosclerotic heart disease of native coronary artery without angina pectoris (principal); R07.9 Chest pain, unspecified | CPT/HCPCS: 93005; 99214 ==

== ENCOUNTER 2024-02-09 06:42 | Outpatient (CLI) | payer MEDICARE, MEDICAID, SELFPAY ==
[2024-02-09 06:56] VITALS: BMI 27.4
--- NOTE | 2024-02-09 06:57 | ECG_ITS ---
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 Interpretive Statements LEXISCAN SESTAMIBI STRESS TEST Procedure: At the baseline, the blood pressure was 143/84 mmHg with a heart rate of 74bpm. The electrocardiogram showed normal sinus rhythm, normal axis with normal ST and T's. The Lexiscan was infused over a period of 20 seconds. A total of 0.4 mg of Lexiscan was infused. The stress phase was continued for a total of 5 minutes. Heart rate was at the end of stress phase was 89 bpm and a blood pressure of 119/74mmHg. The EKG at the peak infusion revealed normal sinus rhythm with no significant ST-T wave changes. Sestamibi was injected 20 seconds after the Lexiscan infusion. Blood pressure at the end of recovery phase was 121/68 mmHg with a heart rate of 84 bpm. Conclusion: 1. Normal EKG response to Lexiscan infusion 2. No Lexiscan induced chest pain or cardiac arrhythmia. 3. Normal blood pressure and heart rate response. 4. Sestamibi/sestamibi perfusion scan pending; see separate report. Electronically Signed On 02-11-2024 19:57:16 CDT by Alo Delaney M.D. [email or web address]
--- NOTE | 2024-02-09 06:58 | NMCV_ITS ---
NM cory perf SPECT r/s* [id number] Frandy Chowdhury Age: 73 Gender: M : 1950 Exam Date: 02/09/2024 07:36 Ordering Phys: Leeanne Salas MD Technologist: YARA Blake Exam Location: [facility] Indications: cp STRESS TEST [facility] IMAGE PROTOCOL Rest/Stress 1 Lexiscan Day Radiopharmaceutical Dose (mCi) Administration Site Administered by Rest: Tc-99m 10.7 IV Hanh Mejias, STAFFING ADMINISTRATOR Sestamibi Stress:Tc-99m 33 IV Hanh Castelangle, STAFFING ADMINISTRATOR Sestamibi Rest: 09-Feb-2024 60 Discovery 630 Stress: 09-Feb-2024 30 Discovery 630 0.4mg Lexiscan. Images obtained in supine and prone position. SPECT RESULTS Technical Quality: Good Raw Data Analysis: Normal Image Corrections: No attenuation or motion correction applied Summed Stress Score: 4 Summed Rest Score: 8 Summed Difference Score: 0 PERFUSION FINDINGS Medium sized area of fixed perfusion defect noted in basal to mid inferior wall without reversibility suggestive of old myocardial infarction versus scarring, artifact cannot be ruled out in the absence of wall motion abnormality. FUNCTIONAL RESULTS (calculated via Gated SPECT) Stress Image LV EF (%): 80 Stress EDV (mL):55 TID: 0.88 Stress ESV (mL):11 FUNCTIONAL FINDINGS: There is normal left ventricular systolic function. No wall motion abnormality. IMPRESSIONS Study is negative for ischemia. Possible old myocardial infarction versus scarring noted in basal to mid moderate area of inferior wall. EKG segment will be documented separately. Irving Rivera MD (Electronically Signed) Final Date: 09 February 2024 11:03 S
[2024-02-09] MEDS: regadenoson 0.4 Mg/5 ml Syringe IVP (08:36)
[2024-02-09 08:50] VITALS: BP 126/83; PULSE 68
== END 2024-02-09 06:43 | disposition home or self-care (01) ==
PROVIDERS: PCP Family Medicine; Visit Provider Nurse Practitioner Family
DX: I25.10 Atherosclerotic heart disease of native coronary artery without angina pectoris (principal); R94.39 Abnormal result of other cardiovascular function study
CPT/HCPCS: 36415; 78452; 93017; 96374; A9500; J2785

== ENCOUNTER 2024-02-29 12:16 | Emergency (ER) | payer MEDICARE, MEDICAID, SELFPAY ==
--- NOTE | 2024-02-29 12:17 | XRR_ITS ---
PROCEDURE INFORMATION: Exam: XR Chest Exam date and time: 02/29/2024 12:35 PM Age: 73 years old Clinical indication: Pain; Angina pectoris; Additional info: Cp TECHNIQUE: Imaging protocol: Radiologic exam of the chest. Views: 1 view. COMPARISON: 1. CR XR chest 1V portable [id number] 08/29/2023 5:15 AM 2. CR XR chest 1V [id number] 07/06/2018 11:26 PM FINDINGS: Lungs: Unremarkable. No consolidation. Pleural spaces: Unremarkable. No pleural effusion. No pneumothorax. Heart/Mediastinum: Stable widening of the cardiac silhouette possibly on the basis of prominent pericardial fat. Bones/joints: Unremarkable. XR/XR chest 1V portable [id number] IMPRESSION: No acute findings.
--- NOTE | 2024-02-29 12:17 | ECG_ITS ---
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 Measurements Intervals [place] Rate: 76 P: 12 VA: 154 QRS: -4 QRSD: 109 T: 11 QT: 382 QTc: 430 Interpretive Statements SINUS RHYTHM INFERIOR MYOCARDIAL INFARCTION , OF INDETERMINATE AGE LATERAL MYOCARDIAL INFARCTION , OF INDETERMINATE AGE Compared to ECG 02/01/2024 10:02:58 T-wave abnormality no longer present Possible ischemia no longer present Myocardial infarct finding still present Electronically Signed On 03-02-2024 12:13:02 CDT by Cherry Sewell M.D. [id number]
[2024-02-29 12:31] VITALS: BP 114/72; PULSE 75; RESP 18; TEMP 36.3; O2SAT 93; BMI 27.1
[2024-02-29 12:46] LABS: Basophils % 0.7 %; Eosinophils # 0.2 10^3/uL (0.0-0.8); Eosinophils % 3.1 %; Hematocrit 41.7 % (37-53); Lymphocytes # 1.8 10^3/uL (0.8-4.8); Lymphocytes % 30.5 %; Mean Corpuscular HGB Conc 32.4 g/dL (30-55); Mean Corpuscular Hemoglobin 28.6 pg (27-33); Mean Corpuscular Volume 88.3 fl (82-101); Mean Platelet Volume 9.2 fL (7.4-10.4); Monocytes # 0.4 10^3/uL (0.2-0.9); Monocytes % 6.2 %; Neutrophils # 3.43 10^3/uL (1.8-7.7); Neutrophils % 59.2 %; Nucleated Red Blood Cells % 0 %; Platelet Count 140 10^3/cmm (157-399); Red Blood Count 4.72 10^6/uL (3.85-5.65); Red Cell Distribution Width 13.5 % (12.1-15.1)
[2024-02-29 13:00] LABS: INR 0.94 (0.8-1.2)
[2024-02-29 13:07] LABS: Troponin(5th) Baseline 22 ng/L (0-15)
[2024-02-29 13:10] LABS: Alanine Aminotransferase 20 U/L (0-41); Albumin Level 4.7 g/dL (3.5-5.2); Alkaline Phosphatase 136 U/L (40-130); Aspartate Amino Transferase 27 U/L (0-40); Blood Urea Nitrogen 24 mg/dL (8-23); Calcium 8.8 mg/dL (8.5-10.5); Carbon Dioxide 21 mmol/L (22-29); Chloride 97 mmol/L (98-107); Creatinine Clr Calc Pharmacy 36.0786; Globulin 2.3 g/dL (1.3-4.6); Glucose 191 mg/dL (65-115); Lipase 43 U/L (13-60); Osmolality Calculated 289 mOsm/kg (285-295); Sodium 135 mmol/L (136-145); Total Bilirubin 0.7 mg/dL (0.15-1.2)
[2024-02-29 13:27] LABS: Anion Gap 21.7 (5-19); Potassium 4.7 mmol/L (3.5-5.1)
== END 2024-02-29 14:03 | disposition left against medical advice (07) ==
PROVIDERS: Emergency Medicine; Emergency Provider Family Medicine; PCP Family Medicine
DX: Z53.21 Procedure and treatment not carried out due to patient leaving prior to being seen by health care provider (principal); R07.9 Chest pain, unspecified
CPT/HCPCS: 71045; 80053; 83690; 84484; 85025; 85610; 93005

== ENCOUNTER 2024-03-16 06:49 | Outpatient (CLI) | payer MEDICARE, MEDICAID, SELFPAY ==
[2024-03-16 08:20] LABS: Anion Gap 20.1 (5-19); Blood Urea Nitrogen 24 mg/dL (8-23); Carbon Dioxide 19 mmol/L (22-29); Chloride 99 mmol/L (98-107); Glucose 137 mg/dL (65-115); NT Pro B Type Natriuretic Pept 324 pg/mL (0-125); Osmolality Calculated 282 mOsm/kg (285-295); Potassium 5.1 mmol/L (3.5-5.1); Sodium 133 mmol/L (136-145)
== END 2024-03-16 06:50 | disposition home or self-care (01) ==
LOC: LAB 06:50
PROVIDERS: PCP Family Medicine; Visit Provider Nurse Practitioner Family
DX: I10 Essential (primary) hypertension (principal); R06.02 Shortness of breath; E78.00 Pure hypercholesterolemia, unspecified
CPT/HCPCS: 36415; 80048; 83880

== ENCOUNTER → 2024-03-21 12:33 | Outpatient (BNVA) | payer MEDICARE, MEDICAID, SELFPAY | PROVIDERS: PCP Family Medicine; Visit Provider Internal Medicine Cardiovascular Disease | DX: I10 Essential (primary) hypertension (principal); Z87.891 Personal history of nicotine dependence; I47.10 Supraventricular tachycardia, unspecified | CPT/HCPCS: 99214 ==

== ENCOUNTER → 2024-07-03 16:00 | Outpatient (BNVA) | payer MEDICARE, MEDICAID, SELFPAY | PROVIDERS: PCP Family Medicine; Visit Provider Internal Medicine Cardiovascular Disease | DX: I25.10 Atherosclerotic heart disease of native coronary artery without angina pectoris (principal); Z95.5 Presence of coronary angioplasty implant and graft; I10 Essential (primary) hypertension; R01.1 Cardiac murmur, unspecified; I25.2 Old myocardial infarction; Z87.891 Personal history of nicotine dependence | CPT/HCPCS: 99214 ==

== ENCOUNTER 2024-08-04 09:53 | Outpatient (CLI) | payer MEDICARE, MEDICAID, SELFPAY ==
--- NOTE | 2024-08-04 10:00 | USCV_ITS ---
Frandy Chowdhury Age: 73 Gender: M : 1950 Exam Date: 08/04/2024 10:10 Ordering Phys: Irving Rivera MD ([email or web address]) Technologist: GARRETT [place] [facility] [place]: SOB BP: 154 / 82 HR: 77 Rhythm: Sinus Technical Quality: Adequate MEASUREMENTS (Male / Female) Normal Values 2D ECHO LV Diastolic Diameter PLAX 4.2 cm 4.2 - 5.9 / 3.9 - 5.3 cm IVS Diastolic Thickness 1.3 cm 0.6 - 1.0 / 0.6 - 0.9 cm IVS Systolic Thickness 1.7 cm LVPW Diastolic Thickness 1.3 cm 0.6 - 1.0 / 0.6 - 0.9 cm LVPW Systolic Thickness 1.6 cm LVOT Diameter 2.1 cm LV Ejection Fraction 2D Teich 53.6 % LV Ejection Fraction MOD 4C 65.0 % LV Ejection Fraction MOD 2C 64.1 % LV Ejection Fraction 2C AL 65.8 % LA Diameter 3.0 cm RA Systolic Volume 4C AL 43.3 ml RA Systolic Volume 4C MOD 40.7 ml LA Sys Volume AL 49.3 cm cubed LA Sys Volume Index AL 25.9 cm cubed/m squared Aorta at Sinotubular Diameter 2.8 cm IVC Diameter 2.2 cm M-MODE LA Ao Ratio MM 1.5 AV Cusp Separation MM 1.3 cm DOPPLER AV Peak Velocity 257.5 cm/s LVOT Peak Velocity 108.0 cm/s AV Area Cont Eq vti 2.1 cm squared AV Area Cont Eq pk 1.5 cm squared MV Peak Velocity 115.0 cm/s MV Area PHT 2.4 cm squared Mitral E to A Ratio 0.7 TR Peak Velocity 143.0 cm/s TR Peak Gradient 8.2 mmHg TV Peak E Velocity 85.0 cm/s PV Peak Velocity 117.0 cm/s FINDINGS Left Ventricle Normal left ventricular size, systolic function and wall thickness, with no regional wall motion abnormalities. Left ventricular ejection fraction is estimated at 60 %. Grade I/IV diastolic dysfunction (abnormal relaxation filling pattern), normal to mildly elevated filling pressures. Right Ventricle The right ventricle is normal in size and function. Right Atrium The right atrium is normal in size. Left Atrium The left atrium is normal in size. Mitral Valve Structurally normal mitral valve without significant stenosis or prolapse. There is no mitral regurgitation. Aortic Valve Severe aortic valve calcification. Moderate aortic valve stenosis, mean gradient 11.1 mmHg, CRISTINA 2.1 cm squared. Trace aortic valve regurgitation. Tricuspid Valve Structurally normal tricuspid valve without significant stenosis or regurgitation. Pulmonary artery systolic pressure is normal. Pulmonic Valve Structurally normal pulmonic valve without significant stenosis. There is no pulmonic regurgitation. Pericardium Normal pericardium without effusion. Aorta Normal ascending aorta dimension. IVC The inferior vena cava appears normal. CONCLUSIONS Normal left ventricular size, systolic function and wall thickness, with no regional wall motion abnormalities. Left ventricular ejection fraction is estimated at 60 %. Grade I/IV diastolic dysfunction (abnormal relaxation filling pattern), normal to mildly elevated filling pressures. Severe aortic valve calcification. Moderate aortic valve stenosis, mean gradient 11.1 mmHg, CRISTINA 2.1 cm squared. Trace aortic valve regurgitation. There is no pericardial effusion. Right atrial pressure is around 5 mm of mercury. Irving Rivera MD (Electronically Signed) Final Date: 11 August 2024 21:01 S
== END 2024-08-04 09:54 | disposition home or self-care (01) ==
PROVIDERS: PCP Family Medicine; Visit Provider Internal Medicine Cardiovascular Disease
DX: I35.0 Nonrheumatic aortic (valve) stenosis (principal); R06.02 Shortness of breath
CPT/HCPCS: 93306

== ENCOUNTER 2024-12-13 22:50 | Emergency (ER) | payer MEDICARE, MEDICAID, SELFPAY ==
[2024-12-13 22:48] VITALS: BP 119/85; PULSE 78; RESP 16; TEMP 37.1; O2SAT 95; BMI 27.4
--- NOTE | 2024-12-13 22:50 | XRR_ITS ---
PROCEDURE INFORMATION: Exam: XR Right Knee Exam date and time: 12/13/2024 11:36 PM Age: 74 years old Clinical indication: Injury or trauma; Fall; Blunt trauma; Knee; Right; Additional info: Fall, patellar pain TECHNIQUE: Imaging protocol: Radiologic exam of the right knee. Views: 3 views. COMPARISON: No relevant prior studies available. FINDINGS: Bones/joints: Normal. Soft tissues: Normal. XR/XR knee RT 3V* [id number] IMPRESSION: No acute findings.
--- NOTE | 2024-12-13 22:51 | W.ED.LOWEXIN ---
HPI - Extremity Injury (Lower) General: Chief Complaint: Fall Stated Complaint: FALL History of Present Illness: 74-year-old man with a history of coronary artery disease, obstructive sleep apnea, hypertension, hyperlipidemia and diabetes who presents emergency room after having a fall. He says he is not on any anticoagulation but Plavix is listed in his medication list. He did not hit his head. No loss of consciousness. No altered mental status. No chest pain. He has some mild pain to his right hand but no deformity and he moves it well. His main complaint is swelling of his knee On his right knee. He also has an abrasion on both knees. He says he was bending over to feed his dog and he became a little bit lightheaded and dizzy and fell forward. Related Data Home Medications ?Medication ?Instructions ?Recorded ?Confirmed glimepiride 4 mg tablet 4 mg PO BID 08/29/23 07/03/24 Previous Rx's ?Medication ?Instructions ?Recorded albuterol sulfate 90 mcg/actuation See Rx Instructions .Route 01/20/21 aerosol inhaler (Ventolin HFA) .COMPLEX #18 grams fluticasone propionate 50 See Rx Instructions .Route 01/20/21 mcg/actuation nasal .COMPLEX #16 grams spray,suspension omeprazole 20 mg capsule,delayed 20 mg PO BID 90 days #180 caps 06/23/21 release tamsulosin 0.4 mg capsule (Flomax) 0.4 mg PO DAILY #90 caps 10/07/21 metformin 750 mg tablet,extended See Rx Instructions .Route 11/06/21 release 24 hr .COMPLEX #270 tabs sitagliptin phosphate 100 mg See Rx Instructions .Route 01/06/22 tablet (Januvia) .COMPLEX #30 tabs metoprolol tartrate 50 mg tablet 50 mg PO BID #60 tabs 02/02/22 Electric wheelchair #1 ea 03/04/22 hydrocodone 10 mg-acetaminophen 1 tab PO BID PRN pain 1 month #60 03/18/22 325 mg tablet tabs aspirin 81 mg tablet,delayed 81 mg PO DAILY #30 tabs 08/31/23 release atorvastatin 40 mg tablet 80 mg (2 x 40 mg) PO QPM #60 tabs 08/31/23 clopidogrel 75 mg tablet 75 mg PO DAILY #30 tabs 08/31/23 lisinopril 20 mg tablet 20 mg PO BID #180 tabs 07/03/24 isosorbide mononitrate 30 mg See Rx Instructions .Route 09/04/24 tablet,extended release 24 hr .COMPLEX #45 tabs Allergies Allergy/AdvReac Type Severity Reaction Status Date / Time No Known Allergies Allergy Verified 07/03/24 16:23 Review of Systems Narrative: Constitutional symptoms: Negative except as documented in HPI. Skin symptoms: Negative except as documented in HPI. Eye symptoms: Negative except as documented in HPI. ENMT symptoms: Negative except as documented in HPI. Respiratory symptoms: Negative except as documented in HPI. Cardiovascular symptoms: Negative except as documented in HPI. Gastrointestinal symptoms: Negative except as documented in HPI. Genitourinary symptoms: Negative except as documented in HPI. Musculoskeletal symptoms: Negative except as documented in HPI. Neurologic symptoms: Negative except as documented in HPI. Psychiatric symptoms: Negative except as documented in HPI. Endocrine symptoms: Negative except as documented in HPI. PFS ED PFSH: Medical History (Updated 12/14/24 @ 00:02 by Dayan Corral MD) Coronary artery disease Myocardial infarction, inferior wall ADRIAN (obstructive sleep apnea) Essential (primary) hypertension Pure hypercholesterolemia, unspecified Chronic pain Diabetes mellitus Surgical History History of coronary artery stent placement History of hip replacement Family History Other Cancer Diabetes Hypertension Social History Smoking and tobacco/nicotine status: former use of tobacco/nicotine Alcohol intake: never Substance/Drug Use: never Household members: none Housing: Apartment Marital status: Single Current occupational status: disabled Physical Exam Narrative: EXAM NARRATIVE: General: Alert, no acute distress. Skin: Warm, dry. Head: Normocephalic, atraumatic. Neck: Supple, trachea midline. Eye: Extraocular movements are intact. Ears, nose, mouth and throat: mucosa moist. Cardiovascular: Regular, Normal peripheral perfusion. Respiratory: Lungs are clear to auscultation, respirations are non-labored, breath sounds are equal, Symmetrical chest wall expansion. Gastrointestinal: Soft, Nontender, Non distended Musculoskeletal: Swelling of the right patellar area. No other deformities Neurological: Alert and oriented, No focal neurological deficit observed. Psychiatric: Cooperative, appropriate mood & affect. Course Vital Signs: Vital signs: Vital Signs Temperature 98.7 F 12/13/24 22:48 Pulse Rate 78 12/13/24 23:46 Respiratory Rate 16 12/13/24 22:48 Blood Pressure 101/69 12/13/24 23:46 Pulse Oximetry 96 12/13/24 23:46 Oxygen Delivery Me thod Room Air 12/13/24 23:46 MDM - Extremity Injury (Lower) Medical Decision Making Medical decision making: Differential diagnosis including but not limited to and based on the above HPI, review of systems and physical exam: In this patient with a musculoskeletal extremity traumatic injury and x-ray is being ordered to rule out fractures and dislocations. Orders placed to evaluate differential diagnosis based on the above differential, HPI and physical exam X-ray of the right knee: No acute process. This was reviewed and interpreted by myself the emergency room physician. I also reviewed the radiology report. I reviewed the patient's medical record. Reexamination: Patient remained stable. No increased work of breathing. No altered mental status. No focal motor deficits. Patient is able to move his leg and bear weight. Assessment and plan: Knee injury - Discharged home - Discussed plan with patient. Answered any questions. - Evaluation and treatment of this problem were appropriate in the emergency setting. Lab Data Radiology Impressions Knee X-Ray 12/13/24 22:50 IMPRESSION: No acute findings. All radiology interpretation(s) finalized by discharge Discharge Plan Discharge Patient Disposition: Home Clinical Impression: Injury of knee Condition: Stable Prescriptions: No Action hydrocodone-acetaminophen 10-325 mg tablet 1 tab PO BID PRN (Reason: pain) 30 Days Qty: 60 0RF lisinopril 20 mg tablet 20 mg PO BID Qty: 180 3RF albuterol sulfate [Ventolin HFA] 90 mcg/actuation HFA aerosol inhaler See Rx Instructions .ROUTE .COMPLEX Qty: 18 3RF Dose Instruction: INHALE 2 PUFFS BY MOUTH FOUR TIMES A DAY NEEDED FOR FOR SHORTNESS OF BREATH OR WHEEZING Rx Instructions: INHALE 2 PUFFS BY MOUTH FOUR TIMES A DAY NEEDED FOR FOR SHORTNESS OF BREATH OR WHEEZING fluticasone propionate 50 mcg/actuation spray,suspension See Rx Instructions .ROUTE .COMPLEX Qty: 16 3RF Dose Instruction: PLACE 1 SPRAY IN EACH NOSTRIL DAILY Rx Instructions: PLACE 1 SPRAY IN EACH NOSTRIL DAILY omeprazole 20 mg capsule,delayed release(DR/EC) 20 mg PO BID 90 Days Qty: 180 3RF tamsulosin [Flomax] 0.4 mg capsule 0.4 mg PO DAILY Qty: 90 3RF metformin 750 mg tablet extended release 24 hr See Rx Instructions .ROUTE .COMPLEX Qty: 270 3RF Dose Instruction: TAKE THREE TABLETS BY MOUTH EVERY DAY AFTER LARGEST MEAL Rx Instructions: TAKE THREE TABLETS BY MOUTH EVERY DAY AFTER LARGEST MEAL Januvia 100 mg tablet See Rx Instructions .ROUTE .COMPLEX Qty: 30 5RF Dose Instruction: TAKE 1 TABLET BY MOUTH DAILY Rx Instructions: TAKE 1 TABLET BY MOUTH DAILY metoprolol tartrate 50 mg tablet 50 mg PO BID Qty: 60 5RF (DME) Electric wheelchair See Rx Instructions .Route .MEDSUPPLY Qty: 1 0RF Rx Instructions: As directed isosorbide mononitrate 30 mg tablet extended release 24 hr See Rx Instructions .ROUTE .COMPLEX Qty: 45 3RF Dose Instruction: take 1/2 tablet BY MOUTH TWICE DAILY Rx Instructions: take 1/2 tablet BY MOUTH TWICE DAILY glimepiride 4 mg tablet 4 mg PO BID atorvastatin 40 mg Tablet 80 mg PO QPM Qty: 60 0RF clopidogrel 75 mg Tablet 75 mg PO DAILY Qty: 30 0RF aspirin 81 mg Tablet,Delayed Release (Dr/Ec) 81 mg PO DAILY Qty: 30 0RF Discharge Orders: Discharge ED (Routine); Ordered 12/14/24 Ordered By: Dayan Corral Referrals: Jesús Avelar MD [Primary Care Provider, Family Practice] Discharge Diet: Usual diet Discharge Activity: Increase activity as tolerated Patient Instructions: Fall Prevention for Older Adults (ED), Opioid Safety, Pain Management, Patient Portal & Thomas Instructions Activity Restrictions/Additional Instructions: Thank you for choosing [facility] for your healthcare needs today. You have been screened and evaluated and felt safe for discharge. Health conditions do change or evolve sometimes and as such it is important that you follow up with your Primary Doctor to be re checked, 3-5 days is a general good time frame for follow up. You are always welcome to return to the ED for re assessment if your symptoms are worsening or you have new concerns Print Language: Cambodian Coding Level of Care Code ED Network Desktop Support Specialist for Lin Marquez
[2024-12-13 22:54] VITALS: BP 116/87; PULSE 80; O2SAT 94
--- OUTSIDE RECORDS SUMMARY | 2024-12-13 23:09 | XMS_ITS | Patient Health Record ---
Author Organization [facility] Address [address] [place] [address] Support Name Relationship Address Phone Frandy Chowdhury Guarantor Unknown Unavailable Reason For Referral No Information Medications Medication SIG (Take, Route, Frequency, Duration) Notes Start Date End Date Status Tamsulosin HCl 0.4 mg Capsule TAKE 1 CAP DENISSE BY MOUTH EVERY DAY; Duration: 30 Active hydroCHLOROthiazide 25 mg Tablet TAKE 1 TABLET BY MOUTH EVERY DAY; Duration: 30 Active Metoprolol Tartrate 50 mg Tablet TAKE 1 TABLET BY MOUTH TWO TIMES DAILY; Duration: 30 Active Omeprazole 20 mg Capsule Delayed Release TAKE ONE CAPSULE BY MOUTH TWICE DAILY; Duration: 90 Active Januvia 100 mg Tablet TAKE 1 TABLET BY MOUTH EVERY DAY; Duration: 30 Active Celecoxib 200 mg Capsule TAKE 1 CAPSULE BY MOUTH TWO TIMES DAILY; Duration: 30 Active Glimepiride 4 mg Tablet TAKE 1 TABLET BY MOUTH TWICE DAILY; Duration: 90 Active Lisinopril 20 mg Tablet TAKE ONE TABLET BY MOUTH EVERY DAY; Duration: 30 Active Simvastatin 40 mg Tablet TAKE 1 TABLET B Y MOUTH EVERY DAY; Duration: 30 Active Plan Of Treatment No Information
[2024-12-13 23:46] VITALS: BP 101/69; PULSE 78; O2SAT 96
[2024-12-14 00:28] VITALS: BP 106/68; PULSE 76; O2SAT 96
[2024-12-14 00:40] VITALS: BP 106/68; PULSE 76; O2SAT 96
== END 2024-12-14 00:42 | disposition home or self-care (01) ==
PROVIDERS: Emergency Provider Emergency Medicine; PCP Family Medicine
DX: S89.91XA Unspecified injury of right lower leg, initial encounter (principal); W19.XXXA Unspecified fall, initial encounter; I25.10 Atherosclerotic heart disease of native coronary artery without angina pectoris; I10 Essential (primary) hypertension; E11.9 Type 2 diabetes mellitus without complications; Z87.891 Personal history of nicotine dependence; Z79.84 Long term (current) use of oral hypoglycemic drugs; Z79.02 Long term (current) use of antithrombotics/antiplatelets; Z79.82 Long term (current) use of aspirin
CPT/HCPCS: 73562; 99283

== ENCOUNTER → 2025-01-09 14:40 | Outpatient (BNVA) | payer MEDICARE, MEDICAID, SELFPAY | PROVIDERS: PCP Family Medicine; Visit Provider Internal Medicine Cardiovascular Disease | DX: I25.10 Atherosclerotic heart disease of native coronary artery without angina pectoris (principal); E78.00 Pure hypercholesterolemia, unspecified; I10 Essential (primary) hypertension; I25.2 Old myocardial infarction; Z87.891 Personal history of nicotine dependence | CPT/HCPCS: 99214 ==